=== PATIENT | female | born 1955 | race Caucasian/White ===

== ENCOUNTER 2024-05-24 17:30 | Inpatient (IN) | payer MEDICARE, SELFPAY ==
--- OUTSIDE RECORDS SUMMARY | 2024-05-24 19:16 | XMS_ITS | Encounter Summary ---
Author Organization [facility] Address [address] [place] [address] Care Team Providers Care Correctional Substance Abuse Counselor Name Role Phone Arturo Piper MD Primary Care Provider [phone] Reason for Referral * Diagnostic Imaging (Routine) - Closed Specialty Diagnoses / Procedures Referred By Alexandra melchor Referred To Contact Radiology Diagnoses Visit for screening mammogram Procedures Mammo Screening Digital Tomosynthesis Bilateral With CAD Arturo Piper MD [address] [place] [address] Phone: tel: fax: [address] [address] Phone: tel: fax: Referral ID Status Reason Start Date Expiration Date Visits Re quested Visits Authorized [id number] Closed 01/31/2017 01/31/2018 1 1 Reason for Visit * Diagnostic Imaging (Routine) - Closed Specialty Diagnoses / Procedures Referred By Alexandra melchor Referred To Contact Radiology Diagnoses Visit for screening mammogram Procedures Mammo Screening Digital Tomosynthesis Bilateral With CAD Arturo Piper MD [address] [place] [address] Phone: tel: fax: [address] [address] Phone: tel: fax: Referral ID Status Reason Start Date Expiration Date Visits Re quested Visits Authorized [id number] Closed 01/31/2017 01/31/2018 1 1 Encounter Details Date Type Department Care Team (Latest Contact Info) Description 04/03/2017 10:10 AM EDT - 04/03/2017 11:59 PM EDT Hospital Encounter [facility] [address] [place] [address] Arturo Piper MD [address] [facility] [address] [place] [address] Visit for screening mammogram Discharge Disposition: Home or Self Care Social History Tobacco Use Types Packs/Day Years Used Date Smoking Tobacco: Never Assessed Comments No Sex and Gender Information Value Date Recorded Sex Assigned at Not on file Legal Sex Female 10:49 AM EDT Gender Identity Not on file Sexual Orientation Not on file documented as of this encounter Plan of Treatment Not on file documented as of this encounter Procedures Procedure Name Priority Date/Time Associated Diagnosis Comments MAMMO SCREENING DIGITAL TOMOSYNTHESIS BILATERAL W CAD Routine 04/03/2017 10:35 AM EDT Visit for screening mammogram documented in this encounter Results * Mammo Screening Digital Tomosynthesis Bilateral With CAD (04/03/2017 10:35 AM EDT) Anatomical Region Laterality Modality Breast N/A Mammography 04/04/2017 9:44 AM EDT Impressions 04/04/2017 9:46 AM EDT No findings suspicious for malignancy. BI-RADS CATEGORY: ??1, NEGATIVE RECOMMENDATION: Yearly mammogram, yearly clinical breast exam, and encourage self breast awareness. CAD was used. The standard false negative rate of mammography is between 10% and 25%. Complex patterns or increased breast density will markedly elevate the false negative rate of mammography. A letter, in lay terminology, with the results of this exam will be mailed to the patient. This report was finalized on 04/04/2017 9:[address] Serena Harkins MD. Narrative 04/04/2017 9:46 AM EDT ROUTINE SCREENING MAMMOGRAM HISTORY: 62-year-old female for routine screening IMAGE COMPARISON: ??06/05/2011 TECHNIQUE: Bilateral full field digital mammography was performed in both 2 and 3-dimensional acquisitions. FINDINGS: There are scattered areas of fibroglandular density. There is no worrisome mass, group of calcifications, or architectural distortion to suggest malignancy. us Arturo Piper MD IM MAMMOGRAPHY ORDERABLES Alix l Result documented in this encounter Visit Diagnoses Diagnosis Visit for screening mammogram documented in this encounter Care Teams Correctional Substance Abuse Counselor Relationship Specialty Start Date End Date Arturo Piper MD [address] [place] [address] PCP - General Family Medicine 01/31/17 documented as of this encounter
--- OUTSIDE RECORDS SUMMARY | 2024-05-24 19:16 | XMS_ITS | Encounter Summary ---
Author Organization [facility] Address [address] [id number] Care Team Providers Care Cash Register Repairer Name Role Phone Arturo Piper MD Primary Care Provider Reason for Referral * Diagnostic Imaging (Routine) - Closed Specialty Diagnoses / Procedures Referred By Alexandra melchor Referred To Contact Radiology Diagnoses Visit for screening mammogram Procedures Mammo Screening Digital Tomosynthesis Bilateral With CAD Arturo Piper MD [address] [place] [address] Phone: tel: fax: Referral ID Status Reason Start Date Expiration Date Visits Re quested Visits Authorized [id number] Closed 09/02/2022 09/02/2023 1 1 Reason for Visit * Diagnostic Imaging (Routine) - Closed Specialty Diagnoses / Procedures Referred By Alexandra melchor Referred To Contact Radiology Diagnoses Visit for screening mammogram Procedures Mammo Screening Digital Tomosynthesis Bilateral With CAD Arturo Piper MD [address] [place] [address] Phone: tel: fax: Referral ID Status Reason Start Date Expiration Date Visits Re quested Visits Authorized [id number] Closed 09/02/2022 09/02/2023 1 1 Encounter Details Date Type Department Care Team (Latest Contact Info) Description 09/30/2022 2:55 PM EDT - 09/30/2022 11:59 PM EDT Hospital Encounter [address] [address] Arturo Piper MD [address] [place], [place] [id number] Visit for screening mammogram Discharge Disposition: Home [...] SCREENING DIGITAL TOMOSYNTHESIS BILATERAL W CAD Routine 09/30/2022 3:43 PM EDT Visit for screening mammogram documented in this encounter Results * Mammo Screening Digital Tomosynthesis Bilateral With CAD (09/30/2022 3:43 PM EDT) Anatomical Region Laterality Modality Breast N/A Mammography 10/01/2022 12:3 0 PM EDT Impressions 10/01/2022 12:32 PM EDT No suspicious abnormality identified. OVERALL ASSESSMENT: ACR BI-RADS CATEGORY: 1, NEGATIVE: ??Recommend continued routine annual screening mammogram. The standard false-negative rate of mammography is between 10% and 25%. Complex patterns or increased breast density will markedly elevate the false-negative rate of mammography. ?? A letter, in lay terminology, with the results of this exam will be mailed to the patient. ?? This report was finalized on 10/01/2022 12:32 PM by Azeb Corrales MD. Narrative 10/01/2022 12:32 PM EDT BILATERAL DIGITAL SCREENING MAMMOGRAM WITH TOMOSYNTHESIS CLINICAL INDICATION: ??Screening mammogram. TECHNIQUE: Bilateral low dose full field digital breast tomosynthesis imaging was performed. CAD was utilized. COMPARISON: Prior studies dating back to 04/03/2017. FINDINGS: There are scattered fibroglandular densities. RIGHT BREAST: No suspicious masses, calcifications, or areas of distortion are seen. LEFT BREAST: No suspicious masses, calcifications, or areas of distortion are seen. Arturo Piper MD IMG MAMMOGRAPHY ORDERABLES Alix l Result documented in this encounter Visit Diagnoses Diagnosis Visit for screening mammogram documented in this encounter Care Teams Cash Register Repairer Relationship Specialty Start Date End Date Arturo Piper MD [address] [place] [address] PCP - General Family Medicine 01/31/17 documented as of this encounter
--- OUTSIDE RECORDS SUMMARY | 2024-05-24 19:16 | XMS_ITS | Continuity of Care Document ---
Author Organization [facility] [place] Address [address] [place] [address] Care Team Providers Care Pantry Chef Name Role Phone KANDIS RICHMOND Primary Care Provider KANDIS RICHMOND Referring Provider Assessment No assessment recorded. Plan of Treatment Reminders Order Date Submit Date Provider Last Modified By Organization Details Last Modified Time Details Appointments None recorded. Lab surgical pathology study 2023 024 [facility], [address] [place] [address], [id number], 12:44:36 Referral None recorded. Procedures None recorded. Surgeries None recorded. Imaging None recorded. Medication Orders None recorded. Patient TargetsNo targets recorded. Patient InstructionsNo instructions recorded. Reason for Referral None Reported. Problems No Known Problems Procedures Surgical History Date Name Laterality Status Provider Name and Address Organization Details Recorded Time 03/22/20 24 Destruction BN Lesions completed NATI FINLEY MD [address] [place] [address], [phone], [facility] 03/22/2024 15:23:35 11/27/19 24 Blade Biopsy completed Haydee Grace [facility] 11/27/2023 14:56:33 12/02/19 20 Tympanogram completed HAKAN KAMARA [address] [place], [address], [facility] 12/02/2019 11:46:05 12/02/19 20 Audiogram completed HAKAN KAMARA [address] [place], [address], [facility] 12/02/2019 11:46:00 Imaging Results None recorded. Procedure Notes None recorded. Medical Equipment None Reported. Allergies No known drug allergies Medications Name Sig Start Date Stop Date Status Note LastModified by Organization Details LastModified Time atorvastati n 40 mg tablet Take 1 tablet every day by oral route. 11/26 completed Not Available Not Available Not Available ciprofloxac in 0.3 % eye drops PLACE 1 DROP INTO RIGHT EYE THREE TIMES A DAY 11/26 completed Not Available Not Available Not Available paroxetine 40 mg tablet Take 1 tablet every day by oral route. 11/26 completed Not Available Not Available Not Available Fluzone High-Dose 2019-20 (PF) 180 mcg/0.5 mL intramuscul ar syringe TO BE ADMINISTE RED BY [employer] T FOR IMMUNIZAT ION 11/26 completed Not Available Not Available Not Available Vitals None Recorded Social History Question Answer Notes LastModified by Organizat ion Details LastModified Time Tobacco Smoking Status Current Every Day Smoker Erin Ruddy gao, [facility] 12/02/2019 10:34:13 What Is Your Level Of Alcohol Consumption? Occasional [email or web address] Information not available 12/02/2019 How Much Tobacco Do You Chew? None [email or web address] Information not available 12/02/2019 Do You Or Have You Ever Used E-cigarettes Or Vape? Never Used Electronic Cigarettes [email or web address] Information not available 12/02/2019 How Much Tobacco Do You Smoke? 1.5 PPD [email or web address] Information not available 12/02/2019 Do You Use Any Illicit Or Recreational Drugs? No Information not available 11/27/2023 Do You Or Have You Ever Used Any Other Forms Of Tobacco Or Nicotine? No Information not available 11/27/2023 Sex: Unknown Functional Status None recorded. Mental Status None recorded. Family History Relationship Description Onset Age of this Age Resolved Age Notes LastModified by Organization Details LastModified Time Sister Family history of malignant neoplasm [email or web address] Not available 12/01 10:33:46 Father Heart disease [email or web address] Not available 12/01 10:33:55 Father Family history of stroke [email or web address] Not available 12/01 10:34:05 Medical History Condition Response Anxiety Disorder Y Basal Cell Carcinoma Y Gynecological HistoryNo gynecological history recorded. Obstetrics History GPAL:G 0 P 0 0 0 0 Past Encounters Encounter ID Performer Location Encounter Start Date Encounter Closed Date Diagnosis/Indication Diagnosis SNOMED-CT Code Diagnosis ICD10 Code [id number] NATI FINLEY MD [address] [address] 03/22/2024 10:55:12 03/22/2024 16:17:46 Neoplasm of uncertain behavior of skin 15076780 D48.5 Solar lentiginosis 12056 2006 L81.4 Health Concerns Section Related Observation LastModified by Organization Detai ls LastModified Time None Recorded Concern Status LastModified by Organization Details LastModified Time None Recorded Payers Encounter Date Sequence Insurance Name Policy Number Policy Tariq Covered Member ID Tariq Member ID Guarantor Name 03/22/2024 [facility] Hyun Sanchez [id number] Hyun Sanchez 03/22/2024 2 [facility] (MEDICARE SUPPLEMENT) PLAN G Hyun Sanchez [id number] Hyun Sanchez Notes Date Note Type Note Provider Name and Address Organization Details Recorded Time 4 text/html 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 {{Yes No*}}- Defibrillator? {{Yes No*}}- Artificial Heart Valves or Joints? {{Yes No*}} When? {{}}- Is patient currently on antibiotics? {{Yes No*}}- History of bleeding, infection, or complication with other surgeries? {{Yes No*}}- Has patient taken any steroids or other immunosuppressant medications in the past 2 weeks? {{Yes No*}}- Currently on blood thinners? {{Yes No*}} Which? {{}} Brown spots on face she'd like removed NATI FINLEY MD [address] [place], [address], [facility] 03/22/2024 15:25:50 OBGyn Episode No OBEpisode recorded.
--- OUTSIDE RECORDS SUMMARY | 2024-05-24 19:16 | XMS_ITS | Encounter Summary ---
Author Organization [facility] Address [address] [place] [address] Care Team Providers Care Videotape Sales Representative Name Role Phone Unavailable Primary Care Provider Unavailabl e Encounter Details Date Type Department Care Team (Late st Contact Info) Description 08/31/2013 9:37 AM EDT - 08/31/2013 11:59 PM EDT Hospital Encounter [facility] [address] [place] [address] [place] [address] [place] [address] Social History Tobacco Use Types Packs/Day Years Used Date Smoking Tobacco: Never Assessed Comments Unknown Sex and Gender Information Value Date Recorded Sex Assigned at Not on file Legal Sex Female 10:49 AM EDT Gender Identity Not on file Sexual Orientation Not on file documented as of this encounter Plan of Treatment Not on file documented as of this encounter Procedures Procedure Name Priority Date/Time Associated Diagnosis Comments XR CHEST PA AND LATERAL Routine 08/31/2013 9:40 AM EDT documented in this encounter Results * X-RAY CHEST PA AND LATERAL (08/31/2013 9:40 AM EDT) Anatomical Region Laterality Modality Body, Chest N/A Radiographic Deepa ging 08/31/2013 9:40 AM EDT Narrative 08/31/2013 11:02 AM EDT PA AND LATERAL CHEST - 08/31/2013: HISTORY: Cough. FINDINGS: 1. There is mild granulomatous and interstitial scarring in the chest which is stable from 10/21/2011. 2. Otherwise, the heart size is normal. The heart is compensated. There is no free fluid, no edema and no active disease. D: ??08/31/2013 E: ??08/31/2013 ? Anselmo CESPEDES ? Reading Aurelio LU ? Releasing Aurelio LU ? Released Date Time- 08/31/13 1157 Procedure Note Marcelo Mahoney MD - 03/15/2015 PA AND LATERAL CHEST - 08/31/2013: HISTORY: Cough. FINDINGS: 1. There is mild granulomatous and interstitial scarring in the chest which is stable from 10/21/2011. 2. Otherwise, the heart size is normal. The heart is compensated. There is no free fluid, no edema and no active disease. E: 08/31/2013 Anselmo CESPEDES Reading Aurelio LU Releasing Aurelio LU Released Date Time- 08/31/13 1157 Arturo Piper MD [facility] ORDERABL ES Final Result documented in this encounter Visit Diagnoses Not on filedocumented in this encounter
--- OUTSIDE RECORDS SUMMARY | 2024-05-24 19:16 | XMS_ITS | Encounter Summary ---
Author Organization [facility] Address [address] [place] [address] Care Team Providers Care Flexible Nanny Name Role Phone Arturo Piper MD Primary Care Provider [phone] Reason for Referral * Diagnostic Imaging (Routine) - Closed Specialty Diagnoses / Procedures Referred By Alexandra melchor Referred To Contact Radiology Diagnoses Visit for screening mammogram Procedures Mammo Screening Digital Tomosynthesis Bilateral With CAD Arturo Piper MD [address] [place] [address] Phone: tel: fax: [address] [address] Phone: tel: fax: Referral ID Status Reason Start Date Expiration Date Visits Re quested Visits Authorized [id number] Closed 08/06/2018 08/06/2019 1 1 Reason for Visit * Diagnostic Imaging (Routine) - Closed Specialty Diagnoses / Procedures Referred By Alexandra melchor Referred To Contact Radiology Diagnoses Visit for screening mammogram Procedures Mammo Screening Digital Tomosynthesis Bilateral With CAD Arturo Piper MD [address] [place] [address] Phone: tel: fax: [address] [address] Phone: tel: fax: Referral ID Status Reason Start Date Expiration Date Visits Re quested Visits Authorized [id number] Closed 08/06/2018 08/06/2019 1 1 Encounter Details Date Type Department Care Team (Latest Contact Info) Description 08/18/2018 11:15 AM EST - 08/18/2018 11:59 PM EST Hospital Encounter [facility] [address] [place] [address] Arturo Piper MD [address] [facility] [address] [place] [address] Visit for screening mammogram Discharge Disposition: Home [...] SCREENING DIGITAL TOMOSYNTHESIS BILATERAL W CAD Routine 08/18/2018 11:43 AM EST Visit for screening mammogram documented in this encounter Results * Mammo Screening Digital Tomosynthesis Bilateral With CAD (08/18/2018 11:43 AM EST) Anatomical Region Laterality Modality Breast N/A Mammography 08/18/2018 1:37 PM EST Impressions 08/18/2018 1:42 PM EST No findings suspicious for malignancy. BI-RADS CATEGORY: [...] the patient. This report was finalized on 08/18/2018 1:[address] Serena Harkins MD. Narrative 08/18/2018 1:42 PM EST ROUTINE SCREENING MAMMOGRAM HISTORY: 63-year-old female for routine screening IMAGE COMPARISON: ??Prior exams, most recently dated 04/03/2017 TECHNIQUE: Low dose full field digital breast tomosynthesis imaging was performed with 2D and 3D acquisitions consisting of bilateral CC and MLO views. Bilateral extended CC views were also performed as well as nipple in profile CC views. FINDINGS: There are scattered areas of fibroglandular density. There is no worrisome mass, group of calcifications, or architectural distortion to suggest malignancy. Arturo Piper MD IM MAMMOGRAPHY ORDERABLES Alix gamez Result documented in this encounter Visit Diagnoses Diagnosis Visit for screening mammogram documented in this encounter Care Teams Flexible Nanny Relationship Specialty [place] [address] [place] [address] PCP - General Family Medicine 01/31/17 documented as of this encounter
--- OUTSIDE RECORDS SUMMARY | 2024-05-24 19:16 | XMS_ITS | Encounter Summary ---
Author Organization [facility] Address [address] [place] [address] Care Team Providers Care Turbo Electric Operator Name Role Phone Unavailable Primary Care Provider Unavailabl e Encounter Details Date Type Department Care Team (Late st Contact Info) Description 12/04/2006 Historical Mammograp hy Encounter [facility] [address] [place] [address] Interface, See Report Social History Tobacco Use Types Packs/Day Years [...] Name Priority Date/Time Associated Diagnosis Comments MAMMO HISTORICAL RESULT Routine 12/04/2006 2:45 PM EDT documented in this encounter Results * MAMMO HISTORICAL RESULT (12/04/2006 2:45 PM EDT) Anatomical Region Laterality Modality Breast Mammography 12/04/2006 2:45 PM EDT Narrative 12/05/2006 1:20 PM EDT ?[facility] ? [address] ??[place], [place] [address] ? NAME: HYUN MAURER ? : ??[birth year] ??MR#: [id number] ? LOC: ?? DIS ? AGE: 51Y ?? Pt type: CO ?Exam Date: 12/04/067 ? SEX: F ?? AN#:[id number] ?Ck-in#: [id number] ? KANDIS RICHMOND ? [address] ? [address] ? [place] ?[place] ?[address] ? Chk-in # ?? Order ?Exam ?[id number] ?? 0001 ? [id number] ??AB MAMMO SCREEN BILAT DIGITAL PNL ? Ord Diag: RTN MMG ? HISTORY: ??51 year old female for annual screening mammography with no reported breast complaints. No personal or family history of breast cancer is given. ?? BILATERAL DIGITAL MAMMOGRAM: ?? COMPARISON USED: ?? 04/19/04, digitized. ?? TECHNIQUE: ??CC and MLO digital views of both breasts were performed. ?? FINDINGS: ??The breast parenchymal pattern is mild to fatty replaced. There are no worrisome masses, areas of architectural distortion, new asymmetries or pleomorphic calcifications. ?? Benign right axillary lymph node is identified. Small intramammary lymph node is noted superiorly on the right. Patches of denser tissue are noted centrally an towards the upper outer quadrants bilaterally in a mildly nodular pattern which is stable. ?? IMPRESSION: ??No mammographic evidence of malignancy or significant change from March,. ?? Bi-Rads II, benign. ?? RECOMMENDATION: ??Yearly mammography, yearly physical exam, monthly self breast exam. ?? The standard false negative rate of mammography is between 10 and 25%. Complex patterns or increased breast density will markedly elevate the ? FINAL ?CONTINUED ?Page ??1 ? RADIOLOGY REPORT ?[facility] ? [address] ??[place], [place] [address] ? NAME: HYUN MAURER ? : ??[birth year] ??MR#: [id number] ? LOC: ?? DIS ? AGE: 51Y ?? Pt type: CO ?Exam Date: 12/04/061446 ? SEX: F ?? AN#:[id number] ?Ck-in#: [id number] ? REESOR,KANDIS E ? [address] ? [address] ? [place] ?[place] [address] ? Checkin-Exam Code Summary ? [phone] false negative rate of mammography. ?? ICAD was utilized. ?? A copy of this report in lay terminology has been sent to the patient. ?/READ BY/ HETAL NGUYEN ?/Released By/ HETAL NGUYEN ?Released By Date/Time: ??06/15/07 1312 ?Rn Licensed Practical: ??JBW ? FINAL ? Page ??2 ? RADIOLOGY REPORT us See Report Interface IMG MAMMOGRAPHY ORDERABLES Final Result documented in this encounter Visit Diagnoses Not on filedocumented in this encounter
--- OUTSIDE RECORDS SUMMARY | 2024-05-24 19:16 | XMS_ITS | Data Portability ---
Author Organization [facility] NANDO Feliz [place] CLOSED Address [address] [facility] [address] [place] [address] Care Team Providers Care Recreation Programmer Name Role Phone KARLSORKANDIS Primary Care Provider REESORKANDIS Referring Provider [phone] Assessment No assessment recorded. Plan of Treatment Reminders Order Date Submit Date Provider Last Modified By Organization Details Last Modified Time Details Appointments None recorded. Lab surgical pathology study 2023 [facility], [address] [place] [address], [phone], 4 13:38:16 surgical pathology study 2023 024 [facility], [address] [place] [address], [phone], 4 12:44:36 Referral None recorded. Procedures None recorded. Surgeries None recorded. Imaging None recorded. Medication Orders None recorded. Patient TargetsNo targets recorded. Patient InstructionsNo instructions recorded. Reason for Referral None Reported. Results Created Date Observation Date Name Description Value Unit Range Abnormal Flag Note LastModifiedBy Organization Detail LastModifiedTime 03/22/20 24 03/22/2024 SURGI SOFIYA surgical SEE BELOW Tensed topat holog y Repor t NAME: HYUN MAURER PATH: DD-24 -1223 3 PROCE DURE DATE: 03/22 SIGNO UT DATE: 03/29 Copy to: Diagn osis: SPIRA DENOM A, RE-EX CISIO N Comme nt: The betsy ns are free of tumor . Subcu taneo us fat is ident ified . SOURC E OF SPECI MEN: SKIN, L POSTE RIOR TEMPL E CLINI SOFIYA INFOR MATIO N: BX PROVE N: SPIRA DENOM A Gross Descr iptio n: Recei bridger for consu ltati on one nguyen speci men that measu red 20 x 10 x 4 mm and seria lly secti oned (x6) submi tted in three casse ttes. Micro scopi c Descr iptio n: There is a full- thick ness excis ion of skin. In the cente r of the secti ons is a focus of granu latio n tissu e estefani ng the site of a previ ous proce dure. Withi n the super ficia l dermi s is a proli ferat ion of epith elial cells with focal duct forma tion. PITA COTO MD Karen d Out Date: 03/29 12:44 1 Not Available [facility] [address] [place] [address], [phone], 03/29/2024 12:44:36 Result Notes None recorded. Problems No Known Problems Procedures Surgical History Date Name Laterality Status Provider Name and Address Organization Details Recorded Time 03/22/20 24 Destruction BN Lesions completed NAIT FINLEY MD [address] [place], [address], [facility] 03/22/2024 15:23:35 11/27/19 24 Blade Biopsy completed Haydee Grace [facility] 11/27/2023 14:56:33 12/02/19 20 Tympanogram completed PAOLA GREEN, AUD [address] [place], [address], [facility] 12/02/2019 11:46:05 12/02/19 20 Audiogram completed PAOLA GREEN AUD [address] [place], [address], [facility] 12/02/2019 11:46:00 Imaging Results None recorded. Procedure [...] ar syringe TO BE ADMINISTE RED BY PHARMACIS T FOR IMMUNIZAT ION 11/26 completed Not Available Not Available Not Available Vitals None Recorded Social History Question Answer Notes LastModified by Organizat ion Details LastModified Time Tobacco Smoking Status Current Every Day Smoker Erin Fox [facility] 12/02/2019 10:34:13 What Is Your Level Of Alcohol Consumption? Occasional [email or web address] Information not available 12/02/2019 How Much Tobacco Do You Chew? None [email or web address] Information not available 12/02/2019 Do You Or Have You Ever Used E-cigarettes Or Vape? Never Used Electronic Cigarettes [email or web address] Information not available 12/02/2019 How Much Tobacco Do You Smoke? 1.5 PPD [email or web address] Information not available 12/02/2019 Do You Use [...] Time Sister Family history of malignant neoplasm [email or web address] Not available 12/01 10:33:46 Father Heart disease [email or web address] Not available 12/01 10:33:55 Father Family history of stroke [email or web address] Not available 12/01 10:34:05 Medical History Condition Response Anxiety Disorder Y Basal Cell Carcinoma Y Gynecological HistoryNo gynecological history recorded. Obstetrics History GPAL:G 0 P 0 0 0 0 Past Encounters Encounter ID Performer Location Encounter Start Date Encounter Closed Date Diagnosis/Indication Diagnosis SNOMED-CT Code Diagnosis ICD10 Code [id number] LUDY HAAS MD [place] [facility] [address] [place] [address] 12/02/2019 10:08:41 12/02/2019 12:22:46 Sensorineural hearing loss of bilateral ears 873935229 H90.3 Noise-garth ghanshyam hearing loss 68486514 H83.3X9 [id number] PAOLA LYNNE, AUD [place] [facility] [address] [place] [address] 7 12/02/2019 11:18:16 12/02/2019 11:46:39 Sensorineural hearing loss of bilateral ears 780128085 H90.3 Abnormal a uditory perception 36583932 H93.296 [id number] PAOLA LYNNE, AUD [place] [facility] [address] [place] [address] 12/08/2019 10:36:54 12/08/2019 11:21:55 [id number] PAOLA LYNNE, AUD [place] [facility] [address] [place] [address] 12/21/2019 11:12:24 12/21/2019 15:46:42 [id number] PAOLA LYNNE, AUD [place] [facility] [address] [place] [address] 12/30/2019 11:27:06 12/30/2019 11:44:28 [id number] PAOLA LYNNE, AUD [place] [facility] [address] [place] [address] 01/18/2020 13:31:23 01/18/2020 14:29:05 [id number] PAOLA LYNNE, AUD [place] [facility] [address] [place] [address] 01/27/2020 13:23:34 01/27/2020 13:42:13 [id number] PAOLA LYNNE, [facility] [place] [facility] [address] [place] [address] 05/09/2020 14:41:20 05/09/2020 14:54:14 [id number] NATI FINLEY MD [place] [address] [place] [address] 11/27/2023 13:51:04 11/27/2023 15:47:39 Melanocytic nevus of skin 356347026 D22.5 Solar lentiginosis 76759 2006 L81.4 Seborrheic keratosis 394 957633 L82.1 Hemangioma of skin 73257 006 D18.01 Neoplasm o f uncertain behavior of skin 45801089 D48.5 [id number] NATI FINLEY MD [facility] [address] [place] [address] 03/22/2024 10:55:12 03/22/2024 16:17:46 Neoplasm of uncertain behavior of skin 41320720 D48.5 Solar lentiginosis 08467 2006 L81.4 Health Concerns Section Related Observation LastModified by Organization Detai ls LastModified Time None Recorded Concern Status LastModified by Organization Details LastModified Time None Recorded Advance Directives Directive None Recorded Payers Encounter Date Sequence Insurance Name Policy Number Policy Tariq Covered Member ID Tariq Member ID Guarantor Name 01/18/2020 1 [place] Hyun R Maurer [id number] Hyun Maurer 01/18/2020 2 [employer] OPTIONS (MEDICARE SUPPLEMENT) PLAN G Hynu Maurer [id number] Hyun Maurer 01/27/2020 1 [place] Hyun R Maurer [id number] Hyun Maurer 01/27/2020 2 [employer] OPTIONS (MEDICARE SUPPLEMENT) PLAN G Hyun Maurer [id number] Hyun Maurer 05/09/2020 1 [place] Hyun R Maurer [id number] Hyun Maurer 05/09/2020 2 [employer] OPTIONS (MEDICARE SUPPLEMENT) PLAN G Hyun Maurer [id number] Hyun Maurer 11/27/2023 1 [place] Hyun Maurer [id number] Hyun Maurer 11/27/2023 2 [employer] OPTIONS (MEDICARE SUPPLEMENT) PLAN G Hynu Maurer [id number] Hyun Maurer 03/22/2024 1 [place] Hyun Maurer [id number] Hyun Maurer 03/22/2024 2 [employer] OPTIONS (MEDICARE SUPPLEMENT) PLAN G Hyun Maurer [id number] Hyun Maurer Notes Date Note Type Note Provider Name and Address Organization Details Recorded Time 4 text/html I have different spots on my skin that I'd like to be checked Extent of skin exam requested:{{focal wais t up* full}} NATI FINLEY MD [address] [place] [address], [address], [facility] 12/05/2023 11:09:20 4 text/html Patient is here for an 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 {{Yes No*}}- Defibrillator? {{Yes [...] face she'd like removed NATI FINLEY MD [address] [place] [address], [address], [facility] 03/22/2024 15:25:50 OBGyn Episode No OBEpisode recorded.
--- OUTSIDE RECORDS SUMMARY | 2024-05-24 19:16 | XMS_ITS | Encounter Summary ---
Author Organization [facility] Address [address] [id number] Care Team Providers Care Ac/Dc Rewinder Name Role Phone Arturo Piper MD Primary Care Provider [phone] Reason for Referral * Diagnostic Imaging (Routine) - Closed Specialty Diagnoses / Procedures Referred By Alexandra melchor Referred To Contact Radiology Diagnoses Tobacco dependency Procedures CT Chest With Contrast Arturo Piper MD [address] [place] [address] Phone: tel: fax: [place] [phone] Phone: tel: Referral ID Status Reason Start Date Expiration Date Visits Re quested Visits Authorized [id number] Closed 03/05/2022 03/05/2023 1 1 Reason for Visit * Diagnostic Imaging (Routine) - Closed Specialty Diagnoses / Procedures Referred By Alexandra melchor Referred To Contact Radiology Diagnoses Tobacco dependency Procedures CT Chest With Contrast Arturo Piper MD [address] [place] [address] Phone: tel: fax: [address] [address] Phone: tel: Referral ID Status Reason Start Date Expiration Date Visits Re quested Visits Authorized [id number] Closed 03/05/2022 03/05/2023 1 1 Encounter Details Date Type Department Care Team (Latest Contact Info) Description 03/13/2022 3:04 PM EDT - 03/13/2022 11:59 PM EDT Hospital Encounter [facility] CT AT [facility] [address] [facility] [place] [address] Arturo Piper MD [address] [facility] [address] [place] [address] Tobacco dependency Discharge Disposition: Home or Self Care Social [...] Procedure Name Priority Date/Time Associated Diagnosis Comments CT CHEST W CONTRAST Routine 03/13/2022 3 :54 PM EDT Tobacco dependency POCT CREATININE Routine 03/13/2022 3:42 PM EDT documented in this encounter Results * CT Chest With Contrast Diagnostic (03/13/2022 3:54 PM EDT) Anatomical Region Laterality Modality Chest N/A Computed Tomogra phy 03/15/2022 12:5 9 PM EDT Impressions 03/15/2022 11:09 PM EDT 1. Multiple granulomatous calcifications of the lungs and mediastinum. 2. Several small bland almost punctate noncalcified pulmonary nodules likely also granulomas. 3. Somewhat larger 6 mm round smooth-margined noncalcified left lower lobe nodule. This may represent a noncalcified granuloma, but by lung RADS criteria is suggested for 6-month low-dose follow-up scan. 4. Mildly hyperplastic appearance of the left adrenal gland, which may be incidental. 5. No evidence of active disease elsewhere. This report was finalized on 03/15/2022 11:[address] Noel Patrick MD. Narrative 03/15/2022 11:09 PM EDT DATE OF EXAM: 03/13/2022 3:22 PM PROCEDURE: CT CHEST W CONTRAST DIAGNOSTIC- INDICATIONS: Tobacco abuse, addiction; F17.200-Nicotine dependence, unspecified, uncomplicated. COMPARISON: No previous CT scan. 08/31/2013 chest 2 views. TECHNIQUE: Routine transaxial slices were obtained through the chest after the intravenous administration of 90 mL of Isovue 300. Reconstructed coronal and sagittal images were also obtained. Automated exposure control and iterative construction methods were used. The radiation dose reduction device was turned on for each scan per the ALARA (As Low as Reasonably Achievable) protocol. FINDINGS: Images of the mediastinum show multiple densely calcified nodes but no significant noncalcified adenopathy or other mass. No pericardial or pleural effusion is seen. There is moderate coronary artery calcification. Thoracic aorta and pulmonary arteries appear grossly normal. Images of the lungs show a smooth, bland 5 mm nodule right middle lobe and a few couple of other punctate right upper lobe nodules or areas of nodular scarring. There are multiple granulomatous calcifications in the left lower lobe, and also a smooth round 6 mm noncalcified nodule, axial image 71 series 4. A small pleural-based nodule or nodular scar is seen in the lingula image 78. Given the presence of other obviously calcified granulomas in the left hilum and left lower lobe this may represent a granuloma as well. Lung RADS criteria for this nodule is category 3 probably benign, with 6-month low-dose CT scan follow-up suggested. Included images of the upper abdomen show diffuse fatty liver change. Spleen is not enlarged. Pancreatic tail, right adrenal gland and upper renal poles appear unremarkable. There is mild left adrenal gland hyperplasia. Bony structures appear to be intact. Procedure Note Noel Patrick MD - 03/15/2022 DATE OF EXAM: 03/13/2022 3:22 PM PROCEDURE: CT CHEST W CONTRAST DIAGNOSTIC- INDICATIONS: Tobacco abuse, addiction; F17.200-Nicotine dependence, unspecified, uncomplicated. COMPARISON: No previous CT scan. 08/31/2013 chest 2 views. TECHNIQUE: Routine transaxial slices were obtained through the chest after the intravenous administration of 90 mL of Isovue 300. Reconstructed coronal and sagittal images were also obtained. Automated exposure control and iterative construction methods were used. The radiation dose reduction device was turned on for each scan per the ALARA (As Low as Reasonably Achievable) protocol. FINDINGS: Images of the mediastinum show multiple densely calcified nodes but no significant noncalcified adenopathy or other mass. No pericardial or pleural effusion is seen. There is moderate coronary artery calcification. Thoracic aorta and pulmonary arteries appear grossly normal. Images of the lungs show a smooth, bland 5 mm nodule right middle lobe and a few couple of other punctate right upper lobe nodules or areas of nodular scarring. There are multiple granulomatous calcifications in the left lower lobe, and also a smooth round 6 mm noncalcified nodule, axial image 71 series 4. A small pleural-based nodule or nodular scar is seen in the lingula image 78. Given the presence of other obviously calcified granulomas in the left hilum and left lower lobe this may represent a granuloma as well. Lung RADS criteria for this nodule is category 3 probably benign, with 6-month low-dose CT scan follow-up suggested. Included images of the upper abdomen show diffuse fatty liver change. Spleen is not enlarged. Pancreatic tail, right adrenal gland and upper renal poles appear unremarkable. There is mild left adrenal gland hyperplasia. Bony structures appear to be intact. IMPRESSION: 1. Multiple granulomatous calcifications of the lungs and mediastinum. 2. Several small bland almost punctate noncalcified pulmonary nodules likely also granulomas. 3. Somewhat larger 6 mm round smooth-margined noncalcified left lower lobe nodule. This may represent a noncalcified granuloma, but by lung RADS criteria is suggested for 6-month low-dose follow-up scan. 4. Mildly hyperplastic appearance of the left adrenal gland, which may be incidental. 5. No evidence of active disease elsewhere. This report was finalized on 03/15/2022 11:[address] Noel Patrick MD. Arturo Piper MD IMG CT ORDERABLES Final Result * POC Creatinine (03/13/2022 3:42 PM EDT) Creatinine 0.90 0.60 - 1.30 mg/dL 03/13/2022 4:03 PM EDT [facility] Comment:Serial Number: [id number] 7Operator: [id number] Blood 03/13/2022 3:42 PM EDT 03/13/2022 4:03 PM EDT Arturo iPper MD POINT OF CARE TEST ORDERABLES F inal Result [facility]
[address] [place] [address], documented in this encounter Visit Diagnoses Diagnosis Tobacco dependency Tobacco use disorder documented in this encounter Administered Medications Inactive Administered Medications - up to 3 most recent administrations Medication Order MAR Action Action Date Dose Rate Site iopamidol (ISOVUE-300) 61 % injection 100 mL 100 mL, Intravenous, Once in Imaging, On Fri03/13/22 at 1557, For 1 dose Given 03/13/2022 3:55 PM EDT 90 mL L eft Arm documented in this encounter Care Teams Ac/Dc Rewinder Relationship Specialty Start Date End Date Arturo Piper MD [address] [place] [address] PCP - General Family Medicine 01/31/17 documented as of this encounter
--- OUTSIDE RECORDS SUMMARY | 2024-05-24 19:16 | XMS_ITS | Encounter Summary ---
Author Organization [facility] Address [address] [place] [address] Care Team Providers Care Human Resources File Clerk Name Role Phone Unavailable Primary Care Provider Unavailabl e Encounter Details Date Type Department Care Team (Late st Contact Info) Description 06/05/2011 Historical Mammograp hy Encounter [facility] [address] [place] [address] Interface, See Report Social History [...] Associated Diagnosis Comments MAMMO HISTORICAL RESULT Routine 06/05/2011 2:23 PM EST documented in this encounter Results * MAMMO HISTORICAL RESULT (06/05/2011 2:23 PM EST) Anatomical Region Laterality Modality Breast Mammography 06/05/2011 2:23 PM EST Narrative 06/06/2011 2:22 PM EST ?[facility] ? [address] ??[place], [place] [address] ? NAME: HYUN MAURER ? : ??53 ??MR#: [id number] ? LOC: ?? DIS ? AGE: 56Y ?? Pt type: CO ?Exam Date: 06/05/11 1425 ? SEX: F ?? AN#:[id number] ?Ck-in#: [id number] ? [facility] ? [address] ? [address] ? [place] ?[place] ?[address] ? Chk-in # ?? Order ?Exam ?[id number] ?? 0001 ? [id number] ??AB MAMM SCREEN BILAT DIG PNL ? Ord Diag: RTN MMG ? BILATERAL SCREENING DIGITAL MAMMOGRAM: ? HISTORY: 56 year old female for routine screening with positive family history of breast cancer in her sister, ovarian cancer in her grandmother. ?? FILM COMPARISON: ??Prior exams most recently dated 12/04/2006. ? FINDINGS: ??The breast parenchymal pattern is a mixture of fat and scattered fibroglandular tissue. ??There is no mass, cluster of microcalcifications, or architectural distortion to suggest development of malignancy. ?? IMPRESSION: No findings suspicious for malignancy. ?? BI-RADS I, Negative. ?? RECOMMENDATION: Yearly mammogram, yearly physical exam, and monthly self breast exam. ? iCAD was utilized. ?? The standard false-negative rate of mammography is between 10 and 25%. Complex patterns or increased breast density will markedly elevate the false-negative rate of mammography. ? A letter, in lay terminology, with the results of this exam will be ? FINAL ?CONTINUED ?Page ??1 ? RADIOLOGY REPORT ?[facility] ? [address] ??[place], [place] [address] ? NAME: HYUN MAURER ? : ??[birth year] ??MR#: [id number] ? LOC: ?? DIS ? AGE: 56Y ?? Pt type: CO ?Exam Date: 06/05/11 1425 ? SEX: F ?? AN#:[id number] ?Ck-in#: [id number] ? [facility] ? [address] ? [address] ? [place] ?[place] ?[address] ? Checkin-Exam Code Summary ? [phone] mailed to the patient. ?/READ BY/ PETER ABRAMS-MD ?/Released By/ PETER ABRAMS-MD ?Released By Date/Time: ??12/15/11 1332 ?Currency Exchange Specialist: ??DME ? FINAL ? Page ??2 ? RADIOLOGY REPORT us See Report Interface IMG MAMMOGRAPHY ORDERABLES Final Result documented in this encounter Visit Diagnoses Not on filedocumented in this encounter
--- OUTSIDE RECORDS SUMMARY | 2024-05-24 19:16 | XMS_ITS | Clinical Summary ---
Author Organization [facility] Address [address] [place] [address] Care Team Providers Care Crown Assembly Machine Operator Name Role Phone Arturo Piper MD Primary Care Provider [phone] Family History Medical History Relation Name Comments Breast cancer Maternal Aunt DX AGE UNKNOW N Breast cancer Paternal Grandmother Breast cancer Sister Ovarian cancer Neg Hx Relation Name Status Comments Maternal Aunt Paternal Grandmother Sister Social History Tobacco Use Types Packs/Day Years Used Date Smoking Tobacco: Never Assessed Abuse Screen Answer Date Recorded Unsafe at Home or Work/School Not on file Feels Threatened by Someone? Not on file 02/2023 Does Anyone Keep You from Co ntacting Others or Doint Things Outside the Home? Not on file 03/31/2023 Physical Sign of Abuse Present Not on file 1 Housing Stability Answer Date Recorded Current Living Arrangements Not on file 02/2023 Potentially Unsafe Housing Conditions Not on mily e 03/31/2023 Family and Community Support Answer Simón e Recorded Help with Day-to-Day Activities Not on file 03/31/2023 Lonely or Isolated Not on file 03/31/2023 Employment Answer Date Recorded Do you want help finding or keeping work or a dale b? Not on file 03/31/2023 Disabilities Answer Date Recorded Concentrating, Remembering, or Making Decisions Difficulty Not on file 03/31/2023 Doing Errands Independently Difficulty Not on fi le 03/31/2023 Education Answer Date Recorded Help with school or training? Not on file Preferred Language Not on file 03/31/2023 Comments No Sex and Gender Information Value Date Recorded Sex Assigned at Not on file Legal Sex Female 10:49 AM EDT Gender Identity Not on file Sexual Orientation Not on file Plan of Treatment Health Maintenance Due Date Last Done Comments ANNUAL WELLNESS VISIT 1954 COLOGUARD 1954 COLON CANCER SCREENING 5 YEA R SIGMOIDOSCOPY 1954 COLONOSCOPY 1954 [address] CANCER SCREENING 1954 CT COLONOGRAPHY 1954 DXA SCAN 1954 FECAL OCCULT BLOOD TEST 1954 FIT Testing (1 year) 1954 HEPATITIS C SCREENING 1954 TDAP/TD VACCINES (1 - Tdap) 1973 ZOSTER VACCINE (1 of 2) 01/15/2004 Pneumococcal Vaccine 65+ (1 of 1 - PCV) 2019 INFLUENZA VACCINE 12/22/2023 05/25/2021, , 04/03/2017 COVID-19 Vaccine (1 - season) 2024 MAMMOGRAM 09/30/2024 09/30/2022, 07/25, 04/03/2017 Procedures Procedure Name Priority Date/Time Associated Diagnosis Comments MAMMO SCREENING DIGITAL TOMOSYNTHESIS BILATERAL W CAD Routine 09/30/2022 3:43 PM EDT Visit for screening mammogram from Last 3 Months or Most Recently Relevant to Health Maintenance Results * Mammo Screening Digital Tomosynthesis Bilateral [...] of distortion are seen. Arturo Piper MD [facility] MAMMOGRAPHY ORDERABLES Alix l Result from Last 3 Months or Most Recently Relevant to Health Maintenance Insurance MEDICARE A & B Member Subscriber Plan / Payer ( fective 2018-Present) Name:Hyun Sanchez Member ID:[id number] Relation to Subscriber:Self Name:Hyun Sanchez Subscriber ID:[id number] Payer ID:[id number] Group ID:Not on file Type:Not on file Address: [address] [employer] Care Teams Crown Assembly Machine Operator Relationship Specialty Start Date End Date Arturo Piper MD [address] [place] [address] PCP - General Family Medicine 01/31/17
[2024-05-24 19:20] VITALS: PULSE 80
[2024-05-24 19:25] VITALS: BMI 25.8
[2024-05-24 19:30] VITALS: BP 125/80; PULSE 76; RESP 18; TEMP 36.6; O2SAT 95; BMI 25.7
--- NOTE | 2024-05-24 19:30 | ECG_ITS ---
APPROVED REPORT Exam: Resting ECG HR:61 bpm ECG Measurements Heart Rate 61 AXES QRSd 79 QRS 25 QT 411 T 36 QTc 415 Conclusion AV dissociation c/w 3rd degreee AV block MODERATE ST DEPRESSION [0.05+ mV ST DEPRESSION] ABNORMAL ECG UNCONFIRMED REPORT Electronically signed by : Javi Gates MD 05/25/2024 08:44:59
--- NOTE | 2024-05-24 19:38 | PC.NURSE ---
Patient arrived to floor via stretcher with EMS from [facility] at 19:12.
[2024-05-24 19:39] LABS: Basophils # 0.1 K/mm3 (0-0.2); Basophils % 0.4 % (0.1-2.0); Eosinophils # 0.1 K/mm3 (0.0-0.4); Eosinophils % 0.6 % (0.1-12.0); Hematocrit 42.1 % (37.0-47.0); Hemoglobin 13.6 g/dL (12.2-16.2); Lymphocytes # 1.8 K/mm3 (0.7-4.5); Lymphocytes % 13.9 % (10-50); Mean Corpuscular HGB Conc 32.2 g/dL (31.8-35.4); Mean Corpuscular Hemoglobin 30.2 pg (27.0-31.2); Mean Corpuscular Volume 93.7 fl (81-99); Mean Platelet Volume 8.2 fl (7.4-10.4); Monocytes # 0.7 K/mm3 (0.1-1.0); Monocytes % 5.5 % (1.7-9.3); Neutrophils # 10.1 K/mm3 (1.8-7.8); Neutrophils % 79.7 % (37.0-80.0); Platelet Count 320 K/mm3 (142-424); Red Blood Count 4.49 M/mm3 (4.20-5.40); White Blood Count 12.6 K/mm3 (4.8-10.8)
[2024-05-24 19:49] LABS: INR 0.99 (0.9-1.1); Prothrombin Time 11.1 seconds (10.1-12.5)
[2024-05-24 20:00] VITALS: PULSE 89
[2024-05-24 20:05] LABS: Chloride 105 mmol/L (98-107)
[2024-05-24 20:06] LABS: Potassium 4.5 mmoL/L (3.5-5.1); Sodium 135 mmol/L (136-145)
[2024-05-24 20:09] LABS: Anion Gap 8.5 mEq/L (5-15); Blood Urea Nitrogen 20 mg/dl (7-17); Calcium 8.9 mg/dl (8.4-10.2); Carbon Dioxide 26 mmol/L (22.0-30.0); Creatinine Clearance Estimated 55 mL/min (50-200); Estimated Glomerular Filt Rate 62 ml/min (>60); GFR (African American) 75 ML/MIN (>60); Glucose 115 mg/dl (74-100); Magnesium 2.1 mg/dl (1.6-2.3)
[2024-05-24] MEDS: HEPARIN DRIP CONSULT 1 EACH NOTAPPLIC (20:27)
--- NOTE | 2024-05-24 20:30 | XR_ITS ---
PROCEDURE INFORMATION: Exam: XR Chest Exam date and time: 05/24/2024 8:33 PM Age: 69 years old Clinical indication: Cough; Additional info: Cough, chest pain 50-year smoker TECHNIQUE: Imaging protocol: Radiologic exam of the chest. Views: 1 view. COMPARISON: No relevant prior studies available. FINDINGS: Tubes, catheters and devices: None. Lungs: Mild bilateral perihilar and basilar interstitial lung opacities, suggesting pulmonary edema versus infiltrates. The peripheral lungs are otherwise clear. No consolidation. Evidence for calcified lung granuloma in the left chest. Pleural spaces: No pleural effusion. No pneumothorax. Heart/Mediastinum: Cardiac silhouette appears mildly enlarged. Bones/joints: Mild to moderate generalized bony degenerative changes. IMPRESSION: 1. Mild interstitial pulmonary edema versus infiltrates. 2. Mild enlarged cardiac silhouette.
--- NOTE | 2024-05-24 20:36 | P.HP_ITS ---
History of Present Illness *Admission Date: 05/24/24 *Reason for visit:: transfer from [place] for [place] *History of present illness: This 69-year-old female has been transferred from [facility]. Per the patient she said she did have a CAT scan of her head related to a fall. Patient is a 50+ year smoker. She was sitting on side of her bed as she remembers was coughing very hard trying to spit some junk up into a garbage can. She is not sure what happened but she woke up on the floor with bruising to the right side of her face near the eye. She does not remember the event she said she also found a little blood on her pillow from the fall but she does not remember laying her head on the pillow after the fall. She said she did have a CAT scan done at [place]. Dr. Hoyos was contacted by [facility] and we have excepted admission of the patient to the floor. The patient is stable at this time alert oriented showing no sign of weakness on either side, no signs of confusion no signs of slurring of speech. I been informed she has received aspirin and Lovenox before transfer.. She is in a changing third-degree block that could be a significant first-degree AV block at times. Heart rate remaining in the 60s. Other vital signs in normal limits. She states she has a small amount of chest pressure and a little bit of headache from her fall. She denies any respiratory symptoms. And she denies being ill before this event. Patient has been examined after caudal has been updated on the patient. Orders have been placed planning to do a cardiac cath in the morning is the agenda. If the patient was to change become unstable would notify cardiology tonight if a more immediate cardiac cath was needed.. Will place on a heparin drip half inch of Nitropaste appropriate labs have been ordered to be rechecked in the morning including an EKG , nicotine patch has been applied. Patient is a smoker but said she was coughing so we will do the respiratory panel to make sure there is no viral infection on top of this and do a chest x-ray. Breathing treatments will be held as as needed as the patient is in no distress at this time saturations 95% on room air. Past medical history, the patient states she normally does not see a doctor very often., She noted she gets most of her normal immunizations, has had normal for women's health exams in the past and also including colonoscopy. She has not spent the night in the hospital since she has not been a much younger person. And despite being more than a 50 pack-year smoker. Patient looks younger than her 69 years she appears to be in good health with good nutrition and normal body weight. Noting we have no record of her in our medical system., So all history is directly from the patient. [facility] Disclaimer: The information contained in this section may have been updated after the patient was seen, as this information can be updated by other users. Medical History (Updated 05/24/24 @ 21:39 by Erin Parish RN) Skin cancer Hyperlipidemia Surgical History (Updated 05/25/24 @ 00:01 by Erin Parish RN) History of hand surgery Family History (Updated 05/24/24 @ 21:38 by Erin Parish RN) Other Family history of Alzheimer's disease Family history of cancer Family history of diabetes mellitus type II Family history of hypertension Family history of myocardial infarction Family history of stroke Social History (Updated 05/24/24 @ 21:40 by Erin Parish RN) Smoking Status: Current every day smoker Tobacco counseling given: provider counseling alcohol intake: current current occupational status: retired Travel in the last 8 weeks: None Review of Systems Review of Systems Review of systems:: pertinent systems reviewed and negative unless documented below Constitutional Constitutional: Reports as per HPI Eyes Eyes: Reports as per HPI Comments: Patient denies any vision changes related to the injury to the right side of her face ENT Ears, Nose, Mouth, and Throat: Reports as per HPI Comments: Facial contusion to the right side of the face at the orbit. Slight bruising slight puffiness to the eyelids, mild amount of jaw pain she states *Cardiovascular Cardiovascular: Reports as per HPI Comments: Denies chest pain at this time says she has a slight sternal pressure, denies radiation to jaw or arm *Respiratory Respiratory: Reports as per HPI Comments: When auscultating the patient for lung sounds she said on my wheezing. Like she has done that in the past. But there was no adventitious sounds at this time *Gastrointestinal Gastrointestinal: Reports as per HPI *Genitourinary Genitourinary: Reports as per HPI Comments: Patient denies any urinary symptoms or incontinence *Musculoskeletal Musculoskeletal: Reports as per HPI Comments: Patient noted she normally has bowel movements occasional constipation Integumentary/Breasts Skin/Breast: Reports as per HPI Comments: Even with the fall denied any chest wall or breast pain *Neurologic Neurologic: Reports as per HPI Psychiatric Psychiatric: Reports as per HPI Endocrine Endocrine: Reports as per HPI Hematologic/Lymphatic Hematologic/Lymphatic: Reports as per HPI Allergic/Immunologic Allergic/Immunologic: Reports as per HPI Meds Home Medications and Allergies Home Medications ?Medication ?Instructions ?Recorded ?Confirmed ?Type No Known Home Medications 05/24/24 05/24/24 History New Prescriptions to Start Prescriptions: Allergies Allergy/AdvReac Type Severity Reaction Status Date / Time No Known Allergies Allergy Verified 05/24/24 19:25 Exam Data for Last 24 hours Vital signs and Labs for Last 24 Hours: Temp Pulse Resp BP Pulse Ox O2 Del Method 97.8 F 76 18 125/80 95 Room Air 05/24/24 19:30 05/24/24 19:30 05/24/24 19:30 05/24/24 19:30 05/24/24 19:30 05/24/24 19:30 Laboratory Results - last 24 hr 05/24/24 19:25: WBC 12.6 H, RBC 4.49, Hgb 13.6, Hct 42.1, MCV 93.7, MCH 30.2, MCHC 32.2, RDW 14.0, Plt Count 320, MPV 8.2, Neut % (Auto) 79.7, Lymph % (Auto) 13.9, [place] % (Auto) 5.5, Eos % (Auto) 0.6, Baso % (Auto) 0.4, Neut # (Auto) 10.1 H, Lymph # (Auto) 1.8, [place] # (Auto) 0.7, Eos # (Auto) 0.1, Baso # (Auto) 0.1, PT 11.1, INR 0.99, APTT 31.0 L, Sodium 135 L, Potassium 4.5, Chloride 105, Carbon Dioxide 26, Anion Gap 8.5, BUN 20 H, Creatinine 0.90, Estimated Creat Clear 55, Estimated GFR 62, Est GFR ( Amer) 75, Glucose 115 H, Calcium 8.9, Magnesium 2.1, Troponin I 36.00 H I & O for Last 24 hours: Intake & Output 05/22/24 05/23/24 05/24/24 05/25/24 05:59 05:59 05:59 05:59 Weight 145 lb 7 oz Radiology Reports for the Last 24 Hours: Did not have x-ray report from other hospital have ordered chest x-ray for the floor Constitutional Constitutional: no acute distress, average body habitus and cooperative Comments: Patient is pleasant to talk to. She appears to be in no acute distress decides having a bruising to the right side of her face. After talking with her she says yeah I am gathering that this is pretty serious. Patient's condition and potential treatment have been explained to the patient *Routine HEENT Exam Head: Present normocephalic and Valenzuela's sign Eye: Present EOMI, PERRL and normal accommodation ENT: Present mucous membranes moist Comments: In looking at the patient's right side of the face is swelling with some bruising especially around the right orbit and temporal area., This we believe is related from a syncopal spell that she had falling from the bed and waking up on the floor. *Routine Neck Exam Neck: Present supple and full ROM Routine Chest/Breast/Axilla Exam Comments: No tenderness of the chest wall or the breast found no bruising to the chest wall found *Routine Respiratory Exam Respiratory: Present CTA bilaterally, normal respiratory effort, able to speak in complete sentences and symmetric chest movement Comments: Examination of the lungs the lungs are completely clear in all cotto despite her history of smoking there was no congestion rales or rhonchi heard she has no cough *Routine Cardiovascular Exam Cardiovascular: Present Normal S1, Normal S2 and irregular rhythm *Routine Abdominal Exam Abdominal: Present soft and normoactive bowel sounds *Routine Rectal Exam Rectal:: deferred *Routine Genitalia Exam Genitalia:: deferred *Routine Extremities Exam Comments: Examination extremities perfectly normal no signs of injury able to move all joints well equal bilateral strength skin turgor and color is normal Routine Back/Spine/Pelvis Exam Back/Spine: Present full ROM Comments: The patient is able to stand sit walk turn without any difficulty *Routine Skin Exam Skin: Present intact, normal turgor and ecchymosis (Noted above in face from fal l) *Routine Neurological Exam Neurological: Present alert, oriented X3, CN II-XII intact, normal reflexes, normal tone, vision grossly intact, hearing grossly intact and normal speech Comments: No neurologic deficits found Routine Psychiatric Exam Psychiatric: Present normal affect, normal thought process, cooperative, good insight and good judgment H&P: Result Impressions 1. Post CT with EKG changes of first-degree AV block significant versus third- degree block,, irregular rhythm 2. [id number] smoking history 3. Contusion right side of face from fall and syncopal episode Assessment and Plan *Assessment and plan (1) Myocardial infarction acute: Status: Acute Qualifiers: Myocardial infarction type: non-ST elevation myocardial infarction Qualified Code(s): I21.4 - Non-ST elevation (NSTEMI) myocardial infarction Category: Medical Code(s): I21.9 - Acute myocardial infarction, unspecified (2) Third degree heart block: Status: Acute Category: Medical Code(s): I44.2 - Atrioventricular block, complete (3) Syncope and collapse determined by examination: Status: Acute Category: Medical Code(s): R55 - Syncope and collapse (4) Contusion of face: Status: Acute Qualifiers: Encounter type: initial encounter Qualified Code(s): S00.83XA - Contusion of other part of head, initial encounter Category: Medical Code(s): S00.83XA - Contusion of other part of head, initial encounter (5) Tobacco dependency: Status: Acute Category: Medical Code(s): F17.200 - Nicotine dependence, unspecified, uncomplicated Plan Patient presented to [facility] with some chest pressure and after having had a fall. On initial workup, concern for elevated troponin on their high-sensitivity test of 33,000. Cardiology at [facility] was consulted for transfer and admission. Case was discussed with head grower and ER physician at [place], patient accepted in transfer, I decided to admit for further management. As her episode occurred more than 12 hours prior to admission, EKG has Q waves, patient has minimal symptoms at this time, decision made to medically manage with cardiology eval in the morning. Patient started on heparin drip. Problems addressed as follows: 1. For current cardiac condition status post CT with elevated troponin and third-degree heart block patient will be admitted to the floor expecting to have cardiac catheterization in the morning as cardiology has been consulted. Placed blood Nitropaste 1/2 inch, heparin drip started, patient will be monitored all night. If patient became unstable during the night or EKG change significantly would consult cardiology to see patient sooner than in the morning for potential catheterization. Initial troponin here was 36 2. Tobacco dependency [id number] history.. Patient's O2 sats are normal on room air at this time she is showing no respiratory distress but will have DuoNebs available if she needs them. Will also get an extra chest x-ray , nicotine patch placed. Also will do nasal swab to make sure that she has not been exposed to any respiratory viruses or bacteria 3. Facial contusion/syncope. Do feel that the patient had either a vagal event, or possibly abnormal arrhythmia that caused her syncope to fall from the bed to the floor. There is no signs of any neurologic damage at this point in time she will continue to be monitored. But presently believe this will heal up without any consequences. Noting that she has no changes in her vision Rounded on patient after nurse practitioner. Personally examined and interviewed patient. Agree with exam findings and care plan as documented. Patient appeared comfortable. Injury to right forehead but no active bleeding. Alert and oriented x 4. No complaint of significant chest pain. Asymptomatic from her 2-1 AV block seen on my personal review of EKG. Initiated on heparin drip. Repeat labs including lipid, CBC, CMP, magnesium, troponin ordered for the morning. Initial troponin at our facility of 30. Relatively consistent with findings at outside hospital. Will monitor for delta. Stable on room air. Monitoring continuous telemetry.
[2024-05-24 20:57] VITALS: BP 108/77; PULSE 65; RESP 18; O2SAT 96
[2024-05-24] MEDS: NITROGLYCERIN 1 GM OINTMENT 0.5 GM TD (20:59)
[2024-05-24] MEDS: HEPARIN SODIUM 5,000 UNIT/ML VIAL 4000 UNIT IV (21:03)
[2024-05-24] MEDS: PANTOPRAZOLE 40MG TABLET 40 MG PO (21:06)
[2024-05-24] MEDS: HEPARIN SODIUM,PORCINE/D5W 500 ML 16 UNIT IV (21:07)
[2024-05-24 21:54] LABS: Adenovirus,PCR Not Detected (NotDetected); Bordetella Pertussis Not Detected (NotDetected); Chlamydophila Pneumoniae, PCR Not Detected (NotDetected); Coronavirus 19, PCR Not Detected (NotDetected); Coronavirus 229E Not Detected (NotDetected); Coronavirus NL63 Not Detected (NotDetected); Coronavirus OC43 Not Detected (NotDetected); Coronovirus HKU1,PCR Not Detected (NotDetected); Human Metapneumovirus Not Detected (NotDetected); Influenza A, PCR Not Detected (NotDetected); Influenza AH1, 2009 Not Detected (NotDetected); Influenza AH1, PCR Not Detected (NotDetected); Influenza AH3,PCR Not Detected (NotDetected); Influenza B, PCR Not Detected (NotDetected); Mycoplasma Pneumoniae, PCR Not Detected (NotDetected); Parainfluenza 1, PCR Not Detected (NotDetected); Parainfluenza 2, PCR Not Detected (NotDetected); Parainfluenza 3, PCR Not Detected (NotDetected); Parainfluenza 4, PCR Not Detected (NotDetected); Respiratory Syncytial Virus Not Detected (NotDetected); Rhinovirus/Enterovirus Not Detected (NotDetected)
--- NOTE | 2024-05-24 23:14 | ECG_ITS ---
APPROVED REPORT Exam: Resting ECG HR:77 bpm ECG Measurements Heart Rate 77 AXES QRSd 77 QRS 18 QT 372 T 10 QTc 403 Conclusion AV Block - cw AV dissociation and 3 degree AV block ABNORMAL ECG UNCONFIRMED REPORT Electronically signed by : Javi Gates MD 05/25/2024 08:41:17
[2024-05-25] VITALS (23 sets, daily range): BP systolic 80–147; BP diastolic 38–71; PULSE 40–60; RESP 16–20; TEMP 36.5–37.1; O2SAT 95–100; BMI 21.6
--- NOTE | 2024-05-25 | IR_ITS ---
APPROVED REPORT Patient Location: Inpatient Private Equity Associate: MAHAD Ellison RT (R) PROCEDURES Selective coronary angiogram Mechanical thrombectomy to the mid dominant right coronary artery Drug-eluting stent deployment to the ostial proximal mid and distal dominant right coronary contiguous manner INDICATION Acute inferior ST elevation myocardial infarction, Coronary artery disease Informed consent was obtained prior to the procedure. COMPLICATIONS None Estimated Blood Loss: Less than 10 mls TECHNIQUE One percent lidocaine used to anesthetize the right anterior aspect of the wrist. The right radial artery was accessed via the Seldinger technique. A 6 Mongolian sheath was placed in the right radial artery. 2.5 mg of Verapamil, 800 mcg of nitroglycerin, 1mg Lidocaine and 5000 U Heparin were given through the arterial sheath. The 6 Mongolian JL 3 guide catheter was used to perform selective coronary angiogram. At the end of the diagnostic angiogram therapeutic Was administered giving a therapeutic ACT and the guide catheter was placed on the right coronary followed by Choice PT for support wire placed distally past the thrombosis. A penumbra mechanical thrombectomy catheter was advanced which removed a partial thrombus in increased flow from TYSON 0 to TYSON I. Following this a 3 mm x 18 mm balloon was deployed at 12 erick in the mid and distal dominant right coronary artery restoring flow. A 3 mm x 38 mm [place] frontier stent was deployed at 12 erick distally restoring flow. An additional 3 mm x 38 mm [place] frontier stent was placed proximal to the for stent yet still overlapping and deployed at 20 erick. An additional 3 mm x 18 mm [place] frontier stent was placed in the ostial segment and connecting into the second stent and deployed at 24 erick. The balloon was advanced and deployed at 24 erick throughout the right coronary. Distally the balloon was advanced and deployed at 18 erick just proximal to the distal portion of the for stent placed. TYSON-3 flow was present at the end of the procedure. Following this 800 mcg of intracoronary nitroglycerin was administered which also improved diameter of the distal vessel. At the end the procedure after achieving excellent angiograph results apparatus was removed the sheath was removed and hemostasis was achieved using TR banding patient was transferred to the postop putting in stable condition. During the catheterization after the right coronary artery was initially revascularized 2-1 AV block improved to 1-1 conduction. By the end of the case patient was back into a 2-1 AV block. ANGIOGRAPHIC RESULTS The left main artery Normal The left anterior descending artery Has an ostial proximal 40 to 50% stenosis followed by an additional mid vessel 40 to 50% stenosis. The first diagonal artery is a large vessel and has proximal 40 and 50% stenosis The circumflex artery Is nondominant and large with proximal tendon 20% stenosis The right coronary artery Large dominant with proximal 50 to 60% stenosis and occluded at the level of the RV marginal branch. Following revascularization the ostial proximal mid and distal right coronary artery was widely patent with inline TYSON-3 flow distally supplying a posterior descending and posterior lateral branch The MACEDO ventriculogram reveals Was not performed The left ventricular end-diastolic pressure Was not measured IMPRESSION Successful percutaneous revascularization of the ostial proximal mid distal dominant right coronary artery 100% occlusion reduced to 0% with 3 contiguous drug-eluting stents Transient mormonism of one-to-one AV conduction Persistent moderate stenosis in the proximal and mid LAD as described above PLAN 1. Plavix 75 mg daily plus aspirin 81 mg daily 2. LDL less than 55 to be achieved with high intensity statin 3. I encouraged patient experienced one-to-one AV conduction after opening the right coronary artery. Patient did degenerate back into 2-1 AV block however is currently hemodynamically stable. I would like to watch patient for the next 24 hours to determine if permanent pacemaker is required. I do believe there is a reasonable chance the AV node will improve and prevent patient from requiring pacemaker placement 4. Start PHILOMENA inhibitor's 5. Cardiac rehabilitation 6. Continuous telemetry Electronically signed by : Deshawn Hoyos MD 05/25/2024 13:09:31
[2024-05-25] MEDS: MELATONIN 5MG TABLET 5 MG PO (02:43)
[2024-05-25 03:38] LABS: PTT Heparin (inpatient only) 34.3 Seconds (50-75)
[2024-05-25] MEDS: HEPARIN SODIUM 5,000 UNIT/ML VIAL 4000 UNIT IV (03:54)
[2024-05-25] MEDS: HEPARIN SODIUM,PORCINE/D5W 500 ML 20 UNIT IV (03:57)
--- NOTE | 2024-05-25 03:57 | PC.NURSE ---
Spoke with Sayda at [facility] regarding PTT. Increased heparing gtt to 20 mls/hr and administered 4000 unit bolus
--- NOTE | 2024-05-25 04:33 | PC.NURSE ---
Hospitalist notified of patients 0400 hypotension and bradycardia. No new orders given. Continuing to monitor patient.
[2024-05-25 06:52] LABS: Albumin Level 3.6 g/dl (3.5-5.0); Chloride 107 mmol/L (98-107); Sodium 133 mmol/L (136-145)
[2024-05-25 06:53] LABS: Potassium 4.1 mmoL/L (3.5-5.1)
[2024-05-25 06:55] LABS: Alanine Aminotransferase 35 U/L (12-78); Albumin/Globulin Ratio 1.4 (1.1-1.8); Alkaline Phosphatase 98 U/L (38-126); Anion Gap 7.1 mEq/L (5-15); Aspartate Amino Transferase 243 U/L (14-36); Bilirubin,Total 0.6 mg/dl (0.2-1.3); Blood Urea Nitrogen 24 mg/dl (7-17); Calcium 8.3 mg/dl (8.4-10.2); Carbon Dioxide 23 mmol/L (22.0-30.0); Cholesterol 248 mg/dl (140-200); Creatinine Clearance Estimated 46 mL/min (50-200); Estimated Glomerular Filt Rate 62 ml/min (>60); GFR (African American) 75 ML/MIN (>60); Globulin 2.6 g/dL (1.3-3.2); Glucose 127 mg/dl (74-100); Total Protein,Serum 6.2 g/dl (6.3-8.2); Triglycerides 132 mg/dl (30-150); VLDL Cholesterol 26 mg/dL (0-40)
[2024-05-25 06:56] LABS: HDL Cholesterol 62 mg/dl (40-60); Magnesium 2.1 mg/dl (1.6-2.3)
[2024-05-25 07:07] LABS: Basophils % 0.3 % (0.1-2.0); Direct LDL Cholesterol 139.75 mg/dL (100-129); Eosinophils % 0.2 % (0.1-12.0); Hematocrit 37.5 % (37.0-47.0); Hemoglobin 12.7 g/dL (12.2-16.2); Lymphocytes # 1.7 K/mm3 (0.7-4.5); Lymphocytes % 12.2 % (10-50); Mean Corpuscular HGB Conc 33.8 g/dL (31.8-35.4); Mean Corpuscular Hemoglobin 31.1 pg (27.0-31.2); Mean Platelet Volume 8.3 fl (7.4-10.4); Monocytes % 6.9 % (1.7-9.3); Neutrophils # 11.4 K/mm3 (1.8-7.8); Neutrophils % 80.4 % (37.0-80.0); Platelet Count 284 K/mm3 (142-424); Red Blood Count 4.07 M/mm3 (4.20-5.40); Red Cell Distribution Width 14.1 % (11.5-17.5); White Blood Count 14.2 K/mm3 (4.8-10.8)
[2024-05-25 07:26] LABS: Thyroid Stimulating Hormone 0.86 uIU/mL (0.465-4.68)
--- NOTE | 2024-05-25 07:45 | HMH.PHAHEP ---
[facility] Heparin Dosing Demographic Data Admission date:: 05/24/24 Date: 05/25/24 Time: 07:45 Allergies Allergy/AdvReac Type Severity Reaction Status Date / Time No Known Allergies Allergy Verified 05/24/24 19:25 Height: 1.6 m Weight: 55.293 kg Indication Medication therapy:: Heparin Current Indications:: ACS (NSTEMI) - LOW DOSE PROTOCOL Current Active Problems (Updated 05/25/24 @ 08:42 by CROW Olsen) Contusion of face (Acute) Syncope and collapse determined by examination (Acute) Tobacco dependency (Acute) Third degree heart block (Acute) Myocardial infarction acute (Acute) CVA?: No Bleeding problem?: No Kidney disease?: No KS?: Yes Additional History:: HYPERLIPIDEMIA, CURRENT SMOKER Desired PTT range:: 50-75 seconds Comments:: BASELINE PTT: 31.0 SECONDS Labs Anticoagulation Lab Results:: 05/24/24 05/25/24 19:25 06:03 Hgb 13.6 12.7 Hct 42.1 37.5 Plt Count 320 284 Monitoring Dose Monitor 1: Date: 05/24/24 Time: 19:25 PTT Result:: BASELINE PTT: 31.0 SECONDS Infusion Rate:: REGULO RECOMMENDED INITIATING HEPARIN DRIP AT 800 UNITS/HOUR = 16 ML/HOUR AND BOLUSING 4000 UNITS HEPARIN IV ONCE. Comment:: PLATELET COUNT = 320,000 Dose Monitor 2: Date: 05/25/24 Time: 03:10 PTT Result:: 34.3 SECONDS Infusion Rate:: REGULO RECOMMENDED INCREASING HEPARIN DRIP TO 1000 UNITS/HOUR = 20 ML/HOUR AND BOLUSING 4000 UNITS HEPARIN IV ONCE. Dose Monitor 3: Date: 05/25/24 Time: 09:00 PTT Result:: 44.4 SECONDS Infusion Rate:: RECOMMEND INCREASING HEPARIN DRIP TO 1100 UNITS/HOUR = 22 ML/HOUR. PER PATIENT'S NURSE, PATIENT TO GO TO SCANNING COORDINATOR SHORTLY. Comment:: PLATELET COUNT = 284,000 Core Measures Is INR > or = 2 at discharge?: No Most Recent Labs:: Laboratory Results - last 24 hr 05/24/24 19:25: WBC 12.6 H, RBC 4.49, Hgb 13.6, Hct 42.1, MCV 93.7, MCH 30.2, MCHC 32.2, RDW 14.0, Plt Count 320, MPV 8.2, Neut % (Auto) 79.7, Lymph % (Auto) 13.9, [place] % (Auto) 5.5, Eos % (Auto) 0.6, Baso % (Auto) 0.4, Neut # (Auto) 10.1 H, Lymph # (Auto) 1.8, [place] # (Auto) 0.7, Eos # (Auto) 0.1, Baso # (Auto) 0.1, PT 11.1, INR 0.99, APTT 31.0 L, Sodium 135 L, Potassium 4.5, Chloride 105, Carbon Dioxide 26, Anion Gap 8.5, BUN 20 H, Creatinine 0.90, Estimated Creat Clear 55, Estimated GFR 62, Est GFR ( Amer) 75, Glucose 115 H, Calcium 8.9, Magnesium 2.1, Troponin I 36.00 H 05/24/24 21:40: Chlamy pneumoniae PCR Not detected, Adenovirus (PCR) Not detected, B. pertussis DNA (PCR) Not detected, Coronavirus OC43 (PCR) Not detected, Coronavirus HKU1 (PCR) Not detected, Coronavirus 229E (PCR) Not detected, SARS-CoV-2 (PCR) Not detected, Coronavirus NL63 (PCR) Not detected, Human Metapneumovir PCR Not detected, Influenza A (H1) PCR Not detected, Influ A (H1N1/09) PCR Not detected, Influenza A (H3) PCR Not detected, Influenza Type A (PCR) Not detected, Influenza Type B (PCR) Not detected, M. pneumoniae (PCR) Not detected, Parainfluenza 1 (PCR) Not detected, Parainfluenza 2 (PCR) Not detected, Parainfluenza 3 (PCR) Not detected, Parainfluenza 4 (PCR) Not detected, RSV (PCR) Not detected, Entero/Rhino (PCR) Not detected 05/24/24 22:22: Troponin I 40.60 H 05/25/24 01:15: Troponin I 39.80 H 05/25/24 03:10: APTT 34.3 L 05/25/24 06:03: WBC 14.2 H, RBC 4.07 L, Hgb 12.7, Hct 37.5, MCV 92.0, MCH 31.1, MCHC 33.8, RDW 14.1, Plt Count 284, MPV 8.3, Neut % (Auto) 80.4 H, Lymph % (Auto) 12.2, [place] % (Auto) 6.9, Eos % (Auto) 0.2, Baso % (Auto) 0.3, Neut # (Auto) 11.4 H, Lymph # (Auto) 1.7, [place] # (Auto) 1.0, Eos # (Auto) 0.0, Baso # (Auto) 0.0, Sodium 133 L, Potassium 4.1, Chloride 107, Carbon Dioxide 23, Anion Gap 7.1, BUN 24 H, Creatinine 0.90, Estimated Creat Clear 46, Estimated GFR 62, Est GFR ( Amer) 75, Glucose 127 H, Calcium 8.3 L, Magnesium 2.1, Total Bilirubin 0.6, AST 243 H, ALT 35, Alkaline Phosphatase 98, Total Protein 6.2 L, Albumin 3.6, Globulin 2.6, Albumin/Globulin Ratio 1.4, Triglycerides 132, Cholesterol 248 H, LDL Cholesterol Direct 139.75 H, VLDL Cholesterol 26, HDL Cholesterol 62 H, Cholesterol/HDL Ratio 4.0 H If INR was < than 2.0 why was therapy stopped?: PATIENT TAKEN TO SCANNING COORDINATOR, STARTED ON PLAVIX/ASPIRIN Were Heparin and Warfarin started on the same day?: No If not, why?: PATIENT STARTED ON PLAVIX/ASPIRIN FOLLOWING SCANNING COORDINATOR.
--- NOTE | 2024-05-25 07:55 | ECG_ITS ---
APPROVED REPORT Exam: Resting ECG HR:45 bpm ECG Measurements Heart Rate 45 AXES QRSd 80 QRS 9 QT 460 T 64 QTc 417 Conclusion [address] ELEVATION, CONSIDER INFERIOR INJURY [MARKED ST ELEVATION W/O NORMALLY INFLECTED T-WAVE IN II/aVF] ACUTE GA UNCONFIRMED REPORT Electronically signed by : Javi Gates MD 05/25/2024 08:48:01
[2024-05-25 08:05] LABS: Hemoglobin A1C 5.4 % (4.0-6.0)
--- NOTE | 2024-05-25 08:27 | EXP.CARD.CON ---
History of Present Illness History of Present Illness Consult date: 05/25/24 Requesting physician: Marcelo Roberson Chief complaint: chest pain, syncope, intermittent 2:1 heart block Additional Medical History:: 1. Hyperlipidemia history of non-compliance with cholesterol meds LDL 139 in 05/2024 2. Tobacco use, 1.5 ppd 3. Syncope with right orbital bruising, 05/2024 4. Delayed presentation of AL with intermittent 2:1 heart block A. Echo, 05/25/2024, EF preserved 5. Pulmonary edema on CXR, 05/25/2024 A. BNP 1960 but clinically stable and able to lie flat without symptoms. No diuretic due to low BP. History of present illness: This 69-year-old female has been transferred from [facility]. Per the patient she said she did have a CAT scan of her head related to a fall. Patient is a 50+ year smoker. She was sitting on side of her bed as she remembers was coughing very hard trying to spit some junk up into a garbage can. She is not sure what happened but she woke up on the floor with bruising to the right side of her face near the eye. She does not remember the event she said she also found a little blood on her pillow from the fall but she does not remember laying her head on the pillow after the fall. She said she did have a CAT scan done at [place]. Dr. Hoyos was contacted by [facility] and we have excepted admission of the patient to the floor. The patient is stable at this time alert oriented showing no sign of weakness on either side, no signs of confusion no signs of slurring of speech. I been informed she has received aspirin and Lovenox before transfer.. She is in a changing third-degree block that could be a significant first-degree AV block at times. Heart rate remaining in the 60s. Other vital signs in normal limits. She states she has a small amount of chest pressure and a little bit of headache from her fall. She denies any respiratory symptoms. And she denies being ill before this event. Patient has been examined after caudal has been updated on the patient. Orders have been placed planning to do a cardiac cath in the morning is the agenda. If the patient was to change become unstable would notify cardiology tonight if a more immediate cardiac cath was needed.. Will place on a heparin drip half inch of Nitropaste appropriate labs have been ordered to be rechecked in the morning including an EKG , nicotine patch has been applied. Patient is a smoker but said she was coughing so we will do the respiratory panel to make sure there is no viral infection on top of this and do a chest x-ray. Breathing treatments will be held as as needed as the patient is in no distress at this time saturations 95% on room air. Past medical history, the patient states she normally does not see a doctor very often., She noted she gets most of her normal immunizations, has had normal for women's health exams in the past and also including colonoscopy. She has not spent the night in the hospital since she has not been a much younger person. And despite being more than a 50 pack-year smoker. Patient looks younger than her 69 years she appears to be in good health with good nutrition and normal body weight. Noting we have no record of her in our medical system., So all history is directly from the patient. The above per Carlitos Meenses APRN and Dr. Roberson's note Pt had chest and arm ache for 2-3 days prior to presenting to [facility]. EKG's show Q waves inferiorly in association with elevated troponins consistent with recent AL. Subsequently transferred to [facility] for further evaluation. Echo performed this AM with preliminary EF looking to be preserved. Telemetry shows sinus rhythm with intermittent 2:1 AV block. Pt and sister in room. 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 BP is borderline low but pt is stable at this time. [facility] Disclaimer: The information contained in this section may have been updated after the patient was seen, as this information can be updated by other users. Medical History (Updated 05/25/24 @ 08:42 by CROW Olsen) Skin cancer Hyperlipidemia Surgical History (Updated 05/25/24 @ 00:01 by Erni Parish RN) History of hand surgery Family History (Updated 05/24/24 @ 21:38 by Erin Parish RN) Other Family history of Alzheimer's disease Family history of cancer Family history of diabetes mellitus type II Family history of hypertension Family history of myocardial infarction Family history of stroke Social History (Updated 05/24/24 @ 21:40 by Erin Parish RN) Smoking Status: Current every day smoker Tobacco counseling given: provider counseling alcohol intake: current current occupational status: retired Travel in the last 8 weeks: None Review of Systems Review of Systems Review of systems:: pertinent systems reviewed and negative unless documented below *Cardiovascular Cardiovascular: Reports chest pain and Reports dyspnea on exertion *Respiratory Respiratory: Reports dyspnea on exertion *Neurologic Neurologic: Reports as per HPI Exam Data for Last 24 hours Vital signs and Labs for Last 24 Hours: Temp Pulse Resp BP Pulse Ox O2 Del Method 98.2 F 47 L 0 L 85/55 L 97 Room Air 05/25/24 04:00 05/25/24 04:00 05/25/24 07:50 05/25/24 04:00 05/25/24 04:00 05/25/24 06:35 Laboratory Results - last 24 hr 05/24/24 19:25: WBC 12.6 H, RBC 4.49, Hgb 13.6, Hct 42.1, MCV 93.7, MCH 30.2, MCHC 32.2, RDW 14.0, Plt Count 320, MPV 8.2, Neut % (Auto) 79.7, Lymph % (Auto) 13.9, [place] % (Auto) 5.5, Eos % (Auto) 0.6, Baso % (Auto) 0.4, Neut # (Auto) 10.1 H, Lymph # (Auto) 1.8, [place] # (Auto) 0.7, Eos # (Auto) 0.1, Baso # (Auto) 0.1, PT 11.1, INR 0.99, APTT 31.0 L, Sodium 135 L, Potassium 4.5, Chloride 105, Carbon Dioxide 26, Anion Gap 8.5, BUN 20 H, Creatinine 0.90, Estimated Creat Clear 55, Estimated GFR 62, Est GFR ( Amer) 75, Glucose 115 H, Calcium 8.9, Magnesium 2.1, Troponin I 36.00 H 05/24/24 21:40: Chlamy pneumoniae PCR Not detected, Adenovirus (PCR) Not detected, B. pertussis DNA (PCR) Not detected, Coronavirus OC43 (PCR) Not detected, Coronavirus HKU1 (PCR) Not detected, Coronavirus 229E (PCR) Not detected, SARS-CoV-2 (PCR) Not detected, Coronavirus NL63 (PCR) Not detected, Human Metapneumovir PCR Not detected, Influenza A (H1) PCR Not detected, Influ A (H1N1/09) PCR Not detected, Influenza A (H3) PCR Not detected, Influenza Type A (PCR) Not detected, Influenza Type B (PCR) Not detected, M. pneumoniae (PCR) Not detected, Parainfluenza 1 (PCR) Not detected, Parainfluenza 2 (PCR) Not detected, Parainfluenza 3 (PCR) Not detected, Parainfluenza 4 (PCR) Not detected, RSV (PCR) Not detected, Entero/Rhino (PCR) Not detected 05/24/24 22:22: Troponin I 40.60 H 05/25/24 01:15: Troponin I 39.80 H 05/25/24 03:10: APTT 34.3 L 05/25/24 06:03: WBC 14.2 H, RBC 4.07 L, Hgb 12.7, Hct 37.5, MCV 92.0, MCH 31.1, MCHC 33.8, RDW 14.1, Plt Count 284, MPV 8.3, Neut % (Auto) 80.4 H, Lymph % (Auto) 12.2, [place] % (Auto) 6.9, Eos % (Auto) 0.2, Baso % (Auto) 0.3, Neut # (Auto) 11.4 H, Lymph # (Auto) 1.7, [place] # (Auto) 1.0, Eos # (Auto) 0.0, Baso # (Auto) 0.0, Sodium 133 L, Potassium 4.1, Chloride 107, Carbon Dioxide 23, Anion Gap 7.1, BUN 24 H, Creatinine 0.90, Estimated Creat Clear 46, Estimated GFR 62, Est GFR ( Amer) 75, Glucose 127 H, Hemoglobin A1c 5.4, Calcium 8.3 L, Magnesium 2.1, Total Bilirubin 0.6, AST 243 H, ALT 35, Alkaline Phosphatase 98, Total Protein 6.2 L, Albumin 3.6, Globulin 2.6, Albumin/Globulin Ratio 1.4, Triglycerides 132, Cholesterol 248 H, LDL Cholesterol Direct 139.75 H, VLDL Cholesterol 26, HDL Cholesterol 62 H, Cholesterol/HDL Ratio 4.0 H, TSH 0.86 I & O for Last 24 hours: Intake & Output 11/30/24 12/01/24 12/02/24 12/03/24 11:59 11:59 11:59 11:59 Output Total 0 / 0 Balance 0 / 0 Weight 121 lb 14.403 oz Constitutional Constitutional: mild distress *Routine Respiratory Exam Respiratory: Present CTA bilaterally; Absent wheezes *Routine Cardiovascular Exam Cardiovascular: Present bradycardia and irregular rhythm *Routine Extremities Exam Extremities: Absent edema *Routine Neurological Exam Neurological: Present alert, oriented X3 and CN II-XII intact Meds Home Medications and Allergies Home Medications ?Medication ?Instructions ?Recorded ?Confirmed ?Type No Known Home Medications 05/24/24 05/24/24 History New Prescriptions to Start Prescriptions: Allergies Allergy/AdvReac Type Severity Reaction Status Date / Time No Known Allergies Allergy Verified 05/24/24 19:25 Assessment and Plan *Assessment and plan (1) Syncope and collapse determined by examination: Status: Acute Category: Medical Code(s): R55 - Syncope and collapse (2) Contusion of face: Status: Acute Qualifiers: Encounter type: initial encounter Qualified Code(s): S00.83XA - Contusion of other part of head, initial encounter Category: Medical Code(s): S00.83XA - Contusion of other part of head, initial encounter (3) Myocardial infarction acute: Status: Acute Qualifiers: Myocardial infarction type: non-ST elevation myocardial infarction Qualified Code(s): I21.4 - Non-ST elevation (NSTEMI) myocardial infarction Category: Medical Code(s): I21.9 - Acute myocardial infarction, unspecified (4) Third degree heart block: Status: Acute Category: Medical Code(s): I44.2 - Atrioventricular block, complete (5) Tobacco dependency: Status: Acute Category: Medical Code(s): F17.200 - Nicotine dependence, unspecified, uncomplicated Plan 1. AL with syncope and intermittent 2:1 AV block -start aspirin -Trop max 40.6 -unable to add BB or PHILOMENA/ARB/Entresto due to borderline low BP -Delayed presentation to outside hospital with Q waves noted on EKG -echo report pending but prelim looks to show preserved EF -recommend [facility] today -recommend monitoring on telemetry to see if pacemaker is needed (pt is having periods of sinus rhythm with 1:1 conduction) 2. Right orbital contusion 3. Tobacco use -cessation recommended 4. History of hyperlipidemia -history of noncompliance with medication -LDL 139 5. Pulmonary edema -BNP 1959 -no diuretic due to low BP and clinically able to lie flat without symptoms [facility] today continue to observe on telemetry to decide if pacemaker needed. Monitor vitals and institute GDMT as able Echocardiogram today shows EF 60% with no wall motion abnormalities. No significant valve disease noted. Cardiac catheter report: 3 KENDRA placed to ostial proximal mid and distal RCA. Moderate stenosis of proximal and mid LAD persist and will be treated medically. Patient had transient religion of one-to-one AV conduction after opening the RCA. Medication recommendations: Aspirin 81 mg daily Plavix 75 mg daily Losartan 25 mg daily if blood pressure allows Atorvastatin 40 mg daily if able to tolerate Monitor patient for 24 hours to see if she will need pacemaker implantation for recurrent conduction abnormality.
[2024-05-25 08:34] LABS: NT Pro Brain Natriuretic Pep. 1960 pg/mL (0-125)
[2024-05-25] MEDS: ASPIRIN 81MG CHEWABLE TABLET 81 MG PO (09:20)
[2024-05-25 10:33] LABS: PTT Heparin (inpatient only) 44.4 Seconds (50-75)
--- OUTSIDE RECORDS SUMMARY | 2024-05-25 10:44 | XMS_ITS | Encounter Summary ---
Author Organization [facility] Address [address] [place] [address] Care Team Providers Care Clam Digger Name Role Phone Unavailable Primary Care Provider Unavailabl e Encounter Details Date Type Department Care Team (Late st Contact Info) Description 06/05/2011 Historical Mammograp hy Encounter [facility] [address] [place] [address] Interface, See Report Social History [...] PM EST ?[facility] ? [address] ??[place], [place] [address] ? NAME: HYUN MAURER ? : ??[birth year] ??MR#: [id number] ? LOC: ?? DIS ? AGE: 56Y ?? Pt type: CO ?Exam Date: 06/05/11 1425 ? SEX: F ?? AN#:[id number] ?Ck-in#: [id number] ? [facility] ? [address] ? [address] ? [place] ?[place] ?[address] ? Chk-in # ?? Order ?Exam ?[id number] ?? 0001 ? [id number] ??AB MAMM SCREEN BILAT DIG PNL ? [...] RADIOLOGY REPORT ?[facility] ? [address] ??[place], [place] [address] ? NAME: HYUN MAURER ? : ??[birth year] ??MR#: [id number] ? LOC: ?? DIS ? AGE: 56Y ?? Pt type: CO ?Exam Date: 06/05/11 1425 ? SEX: F ?? AN#:[id number] ?Ck-in#: [id number] ? [facility] ? [address] ? [address] ? [place] ?[place] ?[address] ? Checkin-Exam Code Summary ? [phone] mailed to the patient. ?/READ BY/ PETER ABRAMS-MD ?/Released By/ PETER ABRAMS-MD ?Released By Date/Time: ??12/15/11 1332 ?Formula Weigher: ??DME ? FINAL ? Page ??2 ? RADIOLOGY REPORT us See Report Interface IMG MAMMOGRAPHY ORDERABLES Final Result documented in this encounter Visit Diagnoses Not on filedocumented in this encounter
--- OUTSIDE RECORDS SUMMARY | 2024-05-25 10:44 | XMS_ITS | Encounter Summary ---
Author Organization [facility] Address [address] [place] [address] Care Team Providers Care Anatomy And Physiology Instructor Name Role Phone Unavailable Primary Care Provider Unavailabl e Encounter Details Date Type Department Care Team (Late st Contact Info) Description 12/04/2006 Historical Mammograp hy Encounter [facility] [address] [place] [address] Interface, See Report Social History [...] PM EDT Narrative 12/05/2006 1:20 PM EDT ?[facility] ? [address] ??[place], [place] [address] ? NAME: HYUN MAURER ? : ??[birth year] ??MR#: [id number] ? LOC: ?? DIS ? AGE: 51Y ?? Pt type: CO ?Exam Date: 12/04/067 ? SEX: F ?? AN#:[id number] ?Ck-in#: [id number] ? [facility] ? [address] ? [address] ? [place] ?[place] ?[address] ? Chk-in # ?? Order ?Exam ?[id number] ?? 0001 ? [id number] ??AB MAMMO SCREEN BILAT DIGITAL PNL ? [...] FINAL ?CONTINUED ?Page ??1 ? RADIOLOGY REPORT ?[facility] ? [address] ??[place], [place] [address] ? NAME: HYUN MAURER ? : ??[birth year] ??MR#: [id number] ? LOC: ?? DIS ? AGE: 51Y ?? Pt type: CO ?Exam Date: 12/04/061446 ? SEX: F ?? AN#:[id number] ?Ck-in#: [id number] ? [facility]AND[facility] E ? [address] ? [address] ? [place] ?[place] ?[address] ? Checkin-Exam Code Summary ? [phone] false negative rate of mammography. ?? ICAD was utilized. ?? A copy of this report in lay terminology has been sent to the patient. ?/READ BY/ HETAL NGUYEN ?/Released By/ HETAL NGUYEN ?Released By Date/Time: ??06/15/07 1312 ?Information Broker: ??JBW ? FINAL ? Page ??2 ? RADIOLOGY REPORT us See Report Interface IMG MAMMOGRAPHY ORDERABLES Final Result documented in this encounter Visit Diagnoses Not on filedocumented in this encounter
--- OUTSIDE RECORDS SUMMARY | 2024-05-25 10:44 | XMS_ITS | Encounter Summary ---
Author Organization [facility] Address [address] [place] [address] Care Team Providers Care Superintendent General Name Role Phone Arturo Piper MD Primary Care Provider [phone] Reason for Referral * Diagnostic Imaging (Routine) - Closed Specialty Diagnoses / Procedures Referred By Alexandra melchor Referred To Contact Radiology Diagnoses Visit for screening mammogram Procedures Mammo Screening Digital Tomosynthesis Bilateral With CAD Arturo Piper MD [address] [place] [address] Phone: tel: fax: [address] [address] Phone: tel: fax: Referral ID Status Reason Start Date Expiration Date Visits Re quested Visits Authorized [id number] Closed 08/06/2018 08/06/2019 1 1 Reason for Visit * Diagnostic Imaging (Routine) - Closed Specialty Diagnoses / Procedures Referred By Alexandra melchor Referred To Contact Radiology Diagnoses Visit for screening mammogram Procedures Mammo Screening Digital Tomosynthesis Bilateral With CAD Arturo Piper MD [address] [place] [address] Phone: tel: fax: [address] [address] Phone: tel: fax: Referral ID Status Reason Start Date Expiration Date Visits Re quested Visits Authorized [id number] Closed 08/06/2018 08/06/2019 1 1 Encounter Details Date Type Department Care Team (Latest Contact Info) Description 08/18/2018 11:15 AM EST - 08/18/2018 11:59 PM EST Hospital Encounter [facility] [address] [place] [address] Arturo Piper MD [address] [facility] [address] [place] [address] Visit for screening mammogram Discharge Disposition: Home [...] mammogram documented in this encounter Care Teams Superintendent General Relationship Specialty [place] [address] [place] [address] PCP - General Family Medicine 01/31/17 documented as of this encounter
--- OUTSIDE RECORDS SUMMARY | 2024-05-25 10:44 | XMS_ITS | Encounter Summary ---
Author Organization [facility] Address [address] [id number] Care Team Providers Care Recycling Program Manager Name Role Phone Arturo Piper MD Primary Care Provider [phone] Reason for Referral * Diagnostic Imaging (Routine) - Closed Specialty Diagnoses / Procedures Referred By Alexandra melchor Referred To Contact Radiology Diagnoses Tobacco dependency Procedures CT Chest With Contrast Arturo Piper MD [address] [place] [address] Phone: tel: fax: [place] [phone] Phone: tel: Referral ID Status Reason Start Date Expiration Date Visits Re quested Visits Authorized [id number] Closed 03/05/2022 03/05/2023 1 1 Reason for Visit * Diagnostic Imaging (Routine) - Closed Specialty Diagnoses / Procedures Referred By Alexandra melchor Referred To Contact Radiology Diagnoses Tobacco dependency Procedures CT Chest With Contrast Arturo Piper MD [address] [place] [address] Phone: tel: fax: [place] [phone] Phone: tel: Referral ID Status Reason Start Date Expiration Date Visits Re quested Visits Authorized [id number] Closed 03/05/2022 03/05/2023 1 1 Encounter Details Date Type Department Care Team (Latest Contact Info) Description 03/13/2022 3:04 PM EDT - 03/13/2022 11:59 PM EDT Hospital Encounter [facility] [address] [facility] [place] [address] Arturo Piper MD [address] [facility] [address] [place] [address] Tobacco dependency Discharge Disposition: Home [...] - 1.30 mg/dL 03/13/2022 4:03 PM EDT [facility] Comment:Serial Number: [id number] 7Operator: [id number] Blood 03/13/2022 3:42 PM EDT 03/13/2022 4:03 PM EDT Arturo Piper MD POINT OF CARE TEST ORDERABLES F inal Result [facility]
[address] [place] [address], documented in this encounter Visit Diagnoses Diagnosis [...] Arm documented in this encounter Care Teams Recycling Program Manager Relationship Specialty Start Date End Date Arturo Piper MD [address] [place] [address] PCP - General Family Medicine 01/31/17 documented as of this encounter
--- OUTSIDE RECORDS SUMMARY | 2024-05-25 10:44 | XMS_ITS | Encounter Summary ---
Author Organization [facility] Address [address] [id number] Care Team Providers Care Design Studio Consultant Name Role Phone Arturo Piper MD Primary Care Provider [phone] Reason for Referral * Diagnostic Imaging (Routine) - Closed Specialty Diagnoses / Procedures Referred By Alexandra melchor Referred To Contact Radiology Diagnoses Visit for screening mammogram Procedures Mammo Screening Digital Tomosynthesis Bilateral With CAD Arturo Pipre MD [address] [place] [address] Phone: tel: fax: Referral ID Status Reason Start Date Expiration Date Visits Re quested Visits Authorized [id number] Closed 09/02/2022 09/02/2023 1 1 Reason for Visit * Diagnostic Imaging (Routine) - Closed Specialty Diagnoses / Procedures Referred By Alexandra melchor Referred To Contact Radiology Diagnoses Visit for screening mammogram Procedures Mammo Screening Digital Tomosynthesis Bilateral With CAD Arturo Piper MD [address] [place] [address] Phone: tel: fax: Referral ID Status Reason Start Date Expiration Date Visits Re quested Visits Authorized [id number] Closed 09/02/2022 09/02/2023 1 1 Encounter Details Date Type Department Care Team (Latest Contact Info) Description 09/30/2022 2:55 PM EDT - 09/30/2022 11:59 PM EDT Hospital Encounter [address] [address] Arturo Piper MD [address] [place], [place] [id number] Visit for screening mammogram Discharge Disposition: Home [...] mammogram documented in this encounter Care Teams Design Studio Consultant Relationship Specialty Start Date End Date Arturo Piper MD [address] [place] [address] PCP - General Family Medicine 01/31/17 documented as of this encounter
--- OUTSIDE RECORDS SUMMARY | 2024-05-25 10:44 | XMS_ITS | Clinical Summary ---
Author Organization [facility] Address [address] [place] [address] Care Team Providers Care Net Programmer Analyst Name Role Phone Arturo Piper MD Primary Care Provider [phone] Family History Medical History Relation Name Comments [...] of distortion are seen. Arturo Piper MD [facility] MAMMOGRAPHY ORDERABLES Alix l Result from Last 3 Months or Most Recently Relevant to Health Maintenance Insurance MEDICARE A & B Member Subscriber Plan / Payer ( fective 2018-Present) Name:Hyun Sanchez Member ID:[id number] Relation to Subscriber:Self Name:Hyun Sanchez Subscriber ID:[id number] Payer ID:[id number] Group ID:Not on file Type:Not on file Address: [id number] [employer] Care Teams Net Programmer Analyst Relationship Specialty Start Date End Date Arturo Piper MD [address] [place] [address] PCP - General Family Medicine 01/31/17
--- OUTSIDE RECORDS SUMMARY | 2024-05-25 10:44 | XMS_ITS | Encounter Summary ---
Author Organization [facility] Address [address] [place] [address] Care Team Providers Care Manager Print Name Role Phone Unavailable Primary Care Provider Unavailabl e Encounter Details Date Type Department Care Team (Late st Contact Info) Description 08/31/2013 9:37 AM EDT - 08/31/2013 11:59 PM EDT Hospital Encounter [facility] [address] [place] [address] [place] [address] [place] [address] Social History Tobacco Use Types Packs/Day [...] Date Time- 08/31/13 1157 Arturo Piper MD [facility] ORDERABL ES Final Result documented in this encounter Visit Diagnoses Not on filedocumented in this encounter
--- OUTSIDE RECORDS SUMMARY | 2024-05-25 10:44 | XMS_ITS | Encounter Summary ---
Author Organization [facility] Address [address] [place] [address] Care Team Providers Care Fish Seiner Name Role Phone Arturo Piper MD Primary Care Provider [phone] Reason for Referral * Diagnostic Imaging (Routine) - Closed Specialty Diagnoses / Procedures Referred By Alexandra melchor Referred To Contact Radiology Diagnoses Visit for screening mammogram Procedures Mammo Screening Digital Tomosynthesis Bilateral With CAD Arturo Piper MD [address] [place] [address] Phone: tel: fax: [address] [phone] Phone: tel: fax: Referral ID Status Reason Start Date Expiration Date Visits Re quested Visits Authorized [id number] Closed 01/31/2017 01/31/2018 1 1 Reason for Visit * Diagnostic Imaging (Routine) - Closed Specialty Diagnoses / Procedures Referred By Alexandra melchor Referred To Contact Radiology Diagnoses Visit for screening mammogram Procedures Mammo Screening Digital Tomosynthesis Bilateral With CAD Arturo Piper MD [address] [place] [address] Phone: tel: fax: [address] [phone] Phone: tel: fax: Referral ID Status Reason Start Date Expiration Date Visits Re quested Visits Authorized [id number] Closed 01/31/2017 01/31/2018 1 1 Encounter Details Date Type Department Care Team (Latest Contact Info) Description 04/03/2017 10:10 AM EDT - 04/03/2017 11:59 PM EDT Hospital Encounter [facility] [address] [place] [id number] Arturo Piper MD [address] [facility] [address] [place] [address] Visit for screening mammogram Discharge Disposition: Home [...] mammogram documented in this encounter Care Teams Fish Seiner Relationship Specialty Start Date End Date Arturo Piper MD [address] [place] [address] PCP - General Family Medicine 01/31/17 documented as of this encounter
[2024-05-25] MEDS: HEPARIN SODIUM,PORCINE/D5W 500 ML 22 UNIT IV (11:06)
[2024-05-25] MEDS: HEPARIN 1,000 UNITS/ML 10ML VIAL (CATH LAB) 10000 UNIT IV (12:19)
[2024-05-25] MEDS: diphenhydrAMINE 50MG/ML VIAL 50 MG IV (12:19)
[2024-05-25] MEDS: NITROGLYCERIN 800MCG/8ML SYR (CATH LAB) 800 MCG IA (12:19)
[2024-05-25] MEDS: LIDOCAINE 1% 10ML MDV 20 ML IJ (12:19)
[2024-05-25] MEDS: VERAPAMIL 2.5MG/ML 2ML VIAL 2.5 MG IV (12:20)
[2024-05-25] MEDS: 0.9 % SODIUM CHLORIDE 500 ML 25 ML IV (12:20)
[2024-05-25] MEDS: HEPARIN 1,000 UNITS/500ML NS (CATH LAB) 3000 UNIT IV (12:21)
[2024-05-25] MEDS: MIDAZOLAM HCL 1MG/ML 5ML VIAL 1 MG IV (12:37)
[2024-05-25] MEDS: FENTANYL 100MCG/2ML VIAL 50 MCG IV (12:59)
[2024-05-25] MEDS: CLOPIDOGREL 300MG TABLET 600 MG PO (13:04)
[2024-05-25] MEDS: IOPAMIDOL-370 (76%);100ML BOTTLE 120 ML IV (13:19)
[2024-05-25 13:24] LABS: CATHL Activated Clotting Time 212 SEC (74-125)
[2024-05-25 17:16] LABS: PTT Heparin (inpatient only) 69.8 Seconds (50-75)
--- NOTE | 2024-05-25 18:03 | EXP.PN ---
Subjective *Date: 05/26/24 *Time: 17:23 Interval history: Patient feels really well after receiving stents today. No chest pain, shortness of breath. Exam Data for Last 24 hours Vital signs and Labs for Last 24 Hours: Temp Pulse Resp BP Pulse Ox O2 Del Method 97.7 F 56 L 16 115/70 99 Room Air 05/25/24 13:35 05/25/24 14:20 05/25/24 14:20 05/25/24 14:20 05/25/24 14:20 05/25/24 16:24 Laboratory Results - last 24 hr 05/24/24 19:25: WBC 12.6 H, RBC 4.49, Hgb 13.6, Hct 42.1, MCV 93.7, MCH 30.2, MCHC 32.2, RDW 14.0, Plt Count 320, MPV 8.2, Neut % (Auto) 79.7, Lymph % (Auto) 13.9, [place] % (Auto) 5.5, Eos % (Auto) 0.6, Baso % (Auto) 0.4, Neut # (Auto) 10.1 H, Lymph # (Auto) 1.8, [place] # (Auto) 0.7, Eos # (Auto) 0.1, Baso # (Auto) 0.1, PT 11.1, INR 0.99, APTT 31.0 L, Sodium 135 L, Potassium 4.5, Chloride 105, Carbon Dioxide 26, Anion Gap 8.5, BUN 20 H, Creatinine 0.90, Estimated Creat Clear 55, Estimated GFR 62, Est GFR ( Amer) 75, Glucose 115 H, Calcium 8.9, Magnesium 2.1, Troponin I 36.00 H 05/24/24 21:40: Chlamy pneumoniae PCR Not detected, Adenovirus (PCR) Not detected, B. pertussis DNA (PCR) Not detected, Coronavirus OC43 (PCR) Not detected, Coronavirus HKU1 (PCR) Not detected, Coronavirus 229E (PCR) Not detected, SARS-CoV-2 (PCR) Not detected, Coronavirus NL63 (PCR) Not detected, Human Metapneumovir PCR Not detected, Influenza A (H1) PCR Not detected, Influ A (H1N1/09) PCR Not detected, Influenza A (H3) PCR Not detected, Influenza Type A (PCR) Not detected, Influenza Type B (PCR) Not detected, M. pneumoniae (PCR) Not detected, Parainfluenza 1 (PCR) Not detected, Parainfluenza 2 (PCR) Not detected, Parainfluenza 3 (PCR) Not detected, Parainfluenza 4 (PCR) Not detected, RSV (PCR) Not detected, Entero/Rhino (PCR) Not detected 05/24/24 22:22: Troponin I 40.60 H 05/25/24 01:15: Troponin I 39.80 H 05/25/24 03:10: APTT 34.3 L 05/25/24 06:03: WBC 14.2 H, RBC 4.07 L, Hgb 12.7, Hct 37.5, MCV 92.0, MCH 31.1, MCHC 33.8, RDW 14.1, Plt Count 284, MPV 8.3, Neut % (Auto) 80.4 H, Lymph % (Auto) 12.2, [place] % (Auto) 6.9, Eos % (Auto) 0.2, Baso % (Auto) 0.3, Neut # (Auto) 11.4 H, Lymph # (Auto) 1.7, [place] # (Auto) 1.0, Eos # (Auto) 0.0, Baso # (Auto) 0.0, Sodium 133 L, Potassium 4.1, Chloride 107, Carbon Dioxide 23, Anion Gap 7.1, BUN 24 H, Creatinine 0.90, Estimated Creat Clear 46, Estimated GFR 62, Est GFR ( Amer) 75, Glucose 127 H, Hemoglobin A1c 5.4, Calcium 8.3 L, Magnesium 2.1, Total Bilirubin 0.6, AST 243 H, ALT 35, Alkaline Phosphatase 98, NT-Pro-B Natriuret Pep 1960 H, Total Protein 6.2 L, Albumin 3.6, Globulin 2.6, Albumin/Globulin Ratio 1.4, Triglycerides 132, Cholesterol 248 H, LDL Cholesterol Direct 139.75 H, VLDL Cholesterol 26, HDL Cholesterol 62 H, Cholesterol/HDL Ratio 4.0 H, TSH 0.86 05/25/24 09:00: APTT 44.4 L 05/25/24 13:59: Activated Clotting Time 212 H* 05/25/24 16:46: APTT 69.8 I & O for Last 24 hours: Intake & Output 05/22/24 05/23/24 05/24/24 05/25/24 23:59 23:59 23:59 23:59 Output Total 0 / 0 Balance 0 / 0 Weight 65.969 kg 55.293 kg Constitutional Constitutional: no acute distress *Routine HEENT Exam Head: Present normocephalic Eye: Present EOMI and PERRL ENT: Present mucous membranes moist *Routine Neck Exam Neck: Present supple; Absent lymphadenopathy *Routine Respiratory Exam Respiratory: Present CTA bilaterally *Routine Cardiovascular Exam Cardiovascular: Present RRR *Routine Abdominal Exam Abdominal: Present soft and normoactive bowel sounds; Absent tenderness *Routine Extremities Exam Extremities: Absent cyanosis, clubbing or edema *Routine Skin Exam Skin: Present warm; Absent rash *Routine Neurological Exam Neurological: Present alert and oriented X3 Assessment and Plan *Assessment and plan (1) Hyperlipidemia: Status: Acute Category: Medical Code(s): E78.5 - Hyperlipidemia, unspecified (2) Myocardial infarction acute: Status: Acute Qualifiers: Myocardial infarction type: non-ST elevation myocardial infarction Qualified Code(s): I21.4 - Non-ST elevation (NSTEMI) myocardial infarction Category: Medical Code(s): I21.9 - Acute myocardial infarction, unspecified (3) STEMI (ST elevation myocardial infarction): Status: Acute Category: Medical Code(s): I21.3 - ST elevation (STEMI) myocardial infarction of unspecified site Plan Hyun Sanchez is a 69-year-old female with medical history significant for chronic tobacco use presented as a transfer from [facility] after STEMI. #STEMI #CAD #Second-degree heart block #Hyperlipidemia ? S/p PCI 05/25/2024 with KENDRA x 3 to ostial proximal mid and distal RCA. ? Patient feels much better after having received stents today. ? Aspirin 81 mg, Plavix 75 mg, atorvastatin 40 mg. ? ECHO 05/25/2024 LVEF 60%, normal biventricular function. ? Per Dr. Hoyos, patient was not 2-1 AV block after stents. Recommended monitoring for 24 hours to determine if permanent pacemaker is needed. ? Cardiology consulted, will hold off on beta-jinny and PHILOMENA/ARB given borderline low BP and heart block. ? Continuous cardiac telemetry. DNI Lovenox 40 mg
--- NOTE | 2024-05-25 20:13 | CA_ITS ---
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 Smoker, COPD, 3*heartblock, Syncopal episode Echo Enhancing Agent Comments: TDS: poor acouystics due to lung impedence. 2D Dimensions Left Atrium 2.33 cm F: 2.7 - 3.8 LA Volume 57.90 mL LA Volume Index 37.519626 mL/m2 (M/F) 16-34 EF AP4 58.30 % GL Strain -22.1 % M-Mode Dimensions RVDd 1.63 cm (0.9-2.6) LA Diam 4.38 cm (1.9-4.0) LVDd 5.03 cm (3.5-5.7) LVDs 3.72 cm (3.5-5.7) IVSd 0.97 cm (0.6-1.1) PWd 0.75 cm (0.6-1.1) EF (Teich) 50.90% EPSs 0.30 cm FS 26.00% EDV (Teich) 119.90 mL TAPSE 1.30 (<1.7) ESV (Teich) 58.90 mL LV Diastology E Decel Time 287 (160-240 msec) E/A Ratio 0.87 MED A' 6.20 cm/s LAT A' 9.90 cm/s Aortic Valve DONOVAN Index 1.42 cm2/m2 AoV Peak Ryley. 205.0 (50-130 cm/s) AO Peak GR. 16.90 mmHg AO Mean GR. 8.10 (<5 mmHg) AO VTI 39.3 (18-25 cm) DONOVAN (VTI) 2.24 (2.5-4.5 cm2) Mitral Valve MV A Velocity 118.0 (40-130 cm/s) E/A Ratio 0.87 Left Ventricle The left ventricle is normal size. The left ventricular systolic function is normal. The left ventricular ejection fraction is within the normal range. There is normal left ventricular wall thickness. There is normal LV segmental wall motion. The left ventricular diastolic function is normal. LVEF is 60%. Right Ventricle The right ventricle is normal size. The right ventricular systolic function is normal. Atria The left atrium size is normal. The right atrium size is normal. There is no Doppler evidence of interatrial shunt. Aortic Valve The aortic valve is mildly thickened. There is no hemodynamically significant aortic stenosis. Trace aortic regurgitation. Mitral Valve Mild mitral annular calcification. The mitral valve leaflets are mildly thickened. No evidence of mitral valve stenosis. Trace mitral regurgitation. Tricuspid Valve Tricuspid valve is grossly normal in structure and function. Trace tricuspid regurgitation. There is insufficient TR jet to estimate RVSP. Pulmonic Valve The pulmonary valve is normal in structure. Trace pulmonic regurgitation. Great Vessels The aortic root is normal in size. The ascending aorta is not well-visualized. IVC is normal in size and collapses >50% with inspiration. Pericardium There is no pericardial effusion. Other Information Study Quality: Fair Conclusion Normal biventricular systolic function. No significant valvular stenosis or regurgitation. Electronically signed by : Tala Rodriguez MD 05/25/2024 12:01:09
[2024-05-25] MEDS: PANTOPRAZOLE 40MG TABLET 40 MG PO (20:33)
[2024-05-25] MEDS: ATORVASTATIN 40MG TABLET 40 MG PO (20:33)
[2024-05-26] VITALS (7 sets, daily range): BP systolic 99–117; BP diastolic 41–57; PULSE 40–80; RESP 14–23; TEMP 36.4–36.8; O2SAT 94–97; BMI 26.1
[2024-05-26 06:32] LABS: Chloride 104 mmol/L (98-107); Potassium 3.7 mmoL/L (3.5-5.1); Sodium 129 mmol/L (136-145)
[2024-05-26 06:35] LABS: Anion Gap 5.7 mEq/L (5-15); Blood Urea Nitrogen 23 mg/dl (7-17); Calcium 7.9 mg/dl (8.4-10.2); Carbon Dioxide 23 mmol/L (22.0-30.0); Creatinine Clearance Estimated 55 mL/min (50-200); Estimated Glomerular Filt Rate 62 ml/min (>60); GFR (African American) 75 ML/MIN (>60); Glucose 102 mg/dl (74-100)
--- NOTE | 2024-05-26 07:42 | ECG_ITS ---
APPROVED REPORT Exam: Resting ECG HR:65 bpm ECG Measurements Heart Rate 65 AXES QRSd 82 QRS -1 QT 408 T -48 QTc 419 Conclusion ATRIAL FIBRILLATION INFERIOR MYOCARDIAL INFARCTION , PROBABLY RECENT [40+ ms Q WAVE AND/OR ST/T ABNORMALITY IN II/aVF] ACUTE GA UNCONFIRMED REPORT Electronically signed by : Javi Gates MD 05/26/2024 20:54:45
[2024-05-26 08:01] LABS: Basophils % 0.2 % (0.1-2.0); Eosinophils % 0.3 % (0.1-12.0); Hematocrit 33.2 % (37.0-47.0); Lymphocytes # 2.2 K/mm3 (0.7-4.5); Lymphocytes % 18.3 % (10-50); Mean Corpuscular HGB Conc 34.1 g/dL (31.8-35.4); Mean Corpuscular Hemoglobin 31.4 pg (27.0-31.2); Mean Corpuscular Volume 92.1 fl (81-99); Mean Platelet Volume 8.5 fl (7.4-10.4); Monocytes % 8.5 % (1.7-9.3); Neutrophils # 8.8 K/mm3 (1.8-7.8); Neutrophils % 72.6 % (37.0-80.0); Platelet Count 261 K/mm3 (142-424); White Blood Count 12.1 K/mm3 (4.8-10.8)
[2024-05-26] MEDS: 0.9 % SODIUM CHLORIDE 1000ML 500 ML IV (08:18)
[2024-05-26 09:07] LABS: Hemoglobin 11.3 g/dL (12.2-16.2)
[2024-05-26] MEDS: ASPIRIN 81MG CHEWABLE TABLET 81 MG PO (09:15)
[2024-05-26] MEDS: CLOPIDOGREL 75MG TAB 75 MG PO (09:15)
--- NOTE | 2024-05-26 13:16 | EXP.CARD.PN ---
Subjective Subjective Date: 05/26/24 Time: 12:00 Principal diagnosis: STEMI, 2:1 AV block Interval history: 69-year-old white female in bed in no acute distress. Feels better after stenting yesterday. Dr. Edgar had an extensive discussion regarding events leading up to cath, timing of cath/stenting and resulting issues with arrhythmias/possible cause for syncope and treatment options with patient today. Would like to try a dose of beta jinny to see if the arrhythmia improves or will pacemaker be needed. If arrhythmia improves then potentially home tomorrow with event monitor. Exam Data for Last 24 hours Vital signs and Labs for Last 24 Hours: Temp Pulse Resp BP Pulse Ox O2 Del Method 97.7 F 79 23 111/56 L 96 Room Air 05/26/24 08:00 05/26/24 08:00 05/26/24 08:00 05/26/24 08:00 05/26/24 08:00 05/26/24 11:43 Laboratory Results - last 24 hr 05/25/24 13:59: Activated Clotting Time 212 H* 05/25/24 16:46: APTT 69.8 05/26/24 05:58: WBC 12.1 H, RBC 3.60 L, Hgb 11.3 L D, Hct 33.2 L, MCV 92.1, MCH 31.4 H, MCHC 34.1, RDW 14.0, Plt Count 261, MPV 8.5, Neut % (Auto) 72.6, Lymph % (Auto) 18.3, [place] % (Auto) 8.5, Eos % (Auto) 0.3, Baso % (Auto) 0.2, Neut # (Auto) 8.8 H, Lymph # (Auto) 2.2, [place] # (Auto) 1.0, Eos # (Auto) 0.0, Baso # (Auto) 0.0, Sodium 129 L, Potassium 3.7, Chloride 104, Carbon Dioxide 23, Anion Gap 5.7, BUN 23 H, Creatinine 0.90, Estimated Creat Clear 55, Estimated GFR 62, Est GFR ( Amer) 75, Glucose 102 H, Calcium 7.9 L I & O for Last 24 hours: Intake & Output 05/24/24 05/25/24 05/26/24 05/27/24 11:59 11:59 11:59 11:59 Intake Total 500 / 500 Output Total 0 / 0 0 / 0 Balance 0 / 0 500 / 500 Weight 121 lb 14.403 oz 147 lb 9 oz Constitutional Constitutional: no acute distress *Routine Respiratory Exam Respiratory: Present CTA bilaterally *Routine Cardiovascular Exam Comments: Sinus rhythm with 2 1 AV block intermittently. Progress Note: A&P Assessment and plan (1) Syncope and collapse determined by examination: Status: Acute (2) Contusion of face: Status: Acute (3) Myocardial infarction acute: Status: Acute (4) Third degree heart block: Status: Acute (5) Tobacco dependency: Status: Acute Assessment and Plan Assessment and Plan for All Diagnoses:: 1. IL with syncope and intermittent 2:1 AV block -DAPT with aspirin and plavix -Trop max 40.6 -attempting to add low dose ARB and trial of beta jinny -Delayed presentation to outside hospital with Q waves noted on EKG -echo shows EF 60% with no wall motion abnormalities -KENDRA to RCA, 05/25/2024 -Intermittent AV block with 2:1 conduction noted. 2. Right orbital contusion -concern for arrhythmia as etiology -continue telemetry 3. Tobacco use -cessation recommended 4. History of hyperlipidemia -history of noncompliance with medication but will start statin -LDL 139 5. Pulmonary edema -BNP 1959 -no diuretic due to low BP and clinically able to lie flat without symptoms 6. Hyponatremia -Na 129 today (down from 135 on admission) -no masses on CXR and not receiving fluids or diuretics -TSH normal this admission check BMP this afternoon since now eating and drinking check AM cortisol to look for Monitor overnight Possibly home tomorrow if no further significant arrhythmias and no need for pacemaker.
[2024-05-26] MEDS: METOPROLOL TARTRATE 5MG/5ML VIAL 5 MG IV (13:21)
[2024-05-26 13:26] LABS: Chloride 104 mmol/L (98-107); Potassium 3.8 mmoL/L (3.5-5.1); Sodium 128 mmol/L (136-145)
[2024-05-26 13:29] LABS: Anion Gap 7.8 mEq/L (5-15); Blood Urea Nitrogen 22 mg/dl (7-17); Carbon Dioxide 20 mmol/L (22.0-30.0); Creatinine Clearance Estimated 55 mL/min (50-200); Estimated Glomerular Filt Rate 62 ml/min (>60); GFR (African American) 75 ML/MIN (>60); Glucose 115 mg/dl (74-100)
--- NOTE | 2024-05-26 13:52 | PC.NURSE ---
Pt. is aox 4, up ad christina, 90's on ra, cardiac diet, 20g R AC SL.
--- NOTE | 2024-05-26 14:32 | XR_ITS ---
FINAL REPORT CLINICAL HISTORY: leukocytosis, yellow productive cough COMPARISON: 05/24/2024 FINDINGS: SINGLE VIEW CHEST The heart is normal in size. The mediastinum is unremarkable. There are right base opacities consistent with pneumonia. There is no pneumothorax. IMPRESSION: Right base pneumonia. Reviewed, Interpreted and Dictated by Jose Wilkins III, MD Transcribed by Lucy Morrow Authenticated and [facility]
[2024-05-26] MEDS: AZITHROMYCIN 250MG TABLET 500 MG PO (16:05)
[2024-05-26] MEDS: CEFTRIAXONE 1 GM 1 GM in 0.9 % SODIUM CHLORIDE 50 ML IV (16:07)
--- NOTE | 2024-05-26 17:23 | EXP.PN ---
Subjective *Date: 05/26/24 *Time: 17:52 Interval history: Patient complains of mild shortness of breath today, CXR shows right lobar pneumonia. Denies chest pain. Exam Data for Last 24 hours Vital signs and Labs for Last 24 Hours: Temp Pulse Resp BP Pulse Ox O2 Del Method 98.3 F 45 L 17 114/41 L 94 L Room Air 05/26/24 16:00 05/26/24 16:00 05/26/24 16:00 05/26/24 16:00 05/26/24 16:00 05/26/24 16:00 Laboratory Results - last 24 hr 05/26/24 05:58: WBC 12.1 H, RBC 3.60 L, Hgb 11.3 L D, Hct 33.2 L, MCV 92.1, MCH 31.4 H, MCHC 34.1, RDW 14.0, Plt Count 261, MPV 8.5, Neut % (Auto) 72.6, Lymph % (Auto) 18.3, [place] % (Auto) 8.5, Eos % (Auto) 0.3, Baso % (Auto) 0.2, Neut # (Auto) 8.8 H, Lymph # (Auto) 2.2, [place] # (Auto) 1.0, Eos # (Auto) 0.0, Baso # (Auto) 0.0, Sodium 129 L, Potassium 3.7, Chloride 104, Carbon Dioxide 23, Anion Gap 5.7, BUN 23 H, Creatinine 0.90, Estimated Creat Clear 55, Estimated GFR 62, Est GFR ( Amer) 75, Glucose 102 H, Calcium 7.9 L 05/26/24 13:07: Sodium 128 L, Potassium 3.8, Chloride 104, Carbon Dioxide 20 L, Anion Gap 7.8, BUN 22 H, Creatinine 0.90, Estimated Creat Clear 55, Estimated GFR 62, Est GFR ( Amer) 75, Glucose 115 H, Calcium 8.0 L I & O for Last 24 hours: Intake & Output 05/23/24 05/24/24 05/25/24 05/26/24 23:59 23:59 23:59 23:59 Intake Total 790 / 790 Output Total 0 / 0 0 / 0 Balance 0 / 0 790 / 790 Weight 65.969 kg 55.293 kg 66.933 kg Constitutional Constitutional: no acute distress *Routine HEENT Exam Head: Present normocephalic Eye: Present EOMI and PERRL ENT: Present mucous membranes moist *Routine Neck Exam Neck: Present supple; Absent lymphadenopathy *Routine Respiratory Exam Respiratory: Present CTA bilaterally *Routine Cardiovascular Exam Cardiovascular: Present RRR *Routine Abdominal Exam Abdominal: Present soft and normoactive bowel sounds; Absent tenderness *Routine Extremities Exam Extremities: Absent cyanosis, clubbing or edema *Routine Skin Exam Skin: Present warm; Absent rash *Routine Neurological Exam Neurological: Present alert and oriented X3 Assessment and Plan *Assessment and plan (1) Hyperlipidemia: Status: Acute Category: Medical Code(s): E78.5 - Hyperlipidemia, unspecified (2) Myocardial infarction acute: Status: Acute Qualifiers: Myocardial infarction type: non-ST elevation myocardial infarction Qualified Code(s): I21.4 - Non-ST elevation (NSTEMI) myocardial infarction Category: Medical Code(s): I21.9 - Acute myocardial infarction, unspecified (3) STEMI (ST elevation myocardial infarction): Status: Acute Category: Medical Code(s): I21.3 - ST elevation (STEMI) myocardial infarction of unspecified site Plan Hyun Sanchez is a 69-year-old female with medical history significant for chronic tobacco use presented as a transfer from [facility] after STEMI. #STEMI #CAD #Second-degree heart block #Hyperlipidemia ? S/p PCI 05/25/2024 with KENDRA x 3 to ostial proximal mid and distal RCA. ? Patient feels much better after having received stents today. ? Aspirin 81 mg, Plavix 75 mg, atorvastatin 40 mg. ? ECHO 05/25/2024 LVEF 60%, normal biventricular function. ? Per Dr. Hoyos, patient was not 2-1 AV block after stents. Recommended monitoring for 24 hours to determine if permanent pacemaker is needed. ? Cardiology consulted, will attempt IV metoprolol 5 mg today for 2:1 AV block. If refractory, will consider pacemaker for tomorrow. Follow-up morning cortisol. ? Continuous cardiac telemetry. #Community-acquired pneumonia ? Patient has had cough for several days, and now has mild shortness of breath. CXR shows right basilar pneumonia. ? Started IV ceftriaxone, azithromycin. DNI Lovenox 40 mg
--- NOTE | 2024-05-26 19:53 | EXP.EVENT.NO ---
While doing evening rounds came in to see the patient. She reported that she is just kind of wired up after all the information , procedures and potential future procedure tomorrow. ,she has been receiving and wondering whether she is going to need an implanted pacemaker device in the morning. She has asked for something to help her sleep Plan, talked with the patient about what things would work the best and decided that we will go ahead and give her melatonin but will give her 0.5 of Ativan to help her go to sleep. She expressed her approval with this as she really would just wants to wind down and have a good night sleep after all she has been through.
--- NOTE | 2024-05-26 20:13 | PC.NURSE ---
Notified by ocean freight forwarder at 2009 that patient had 3 beats of vtach at 1859. Notified hospitalist. No new orders given
[2024-05-26] MEDS: MELATONIN 5MG TABLET 5 MG PO (20:39)
[2024-05-26] MEDS: PANTOPRAZOLE 40MG TABLET 40 MG PO (20:39)
[2024-05-26] MEDS: ATORVASTATIN 40MG TABLET 40 MG PO (20:39)
[2024-05-26] MEDS: LORazepam 0.5MG TABLET 0.5 MG PO (20:40)
[2024-05-27] VITALS: BP 108/62; PULSE 46; PULSE 50; RESP 16; TEMP 37; O2SAT 96
[2024-05-27 04:00] VITALS: BP 101/56; PULSE 66; PULSE 70; RESP 16; TEMP 36.7; O2SAT 98; BMI 26.6
[2024-05-27 06:48] LABS: Basophils % 0.4 % (0.1-2.0); Eosinophils # 0.1 K/mm3 (0.0-0.4); Eosinophils % 0.9 % (0.1-12.0); Hematocrit 29.6 % (37.0-47.0); Hemoglobin 10.2 g/dL (12.2-16.2); Lymphocytes # 2.1 K/mm3 (0.7-4.5); Lymphocytes % 25.2 % (10-50); Mean Corpuscular HGB Conc 34.4 g/dL (31.8-35.4); Mean Corpuscular Hemoglobin 31.5 pg (27.0-31.2); Mean Corpuscular Volume 91.4 fl (81-99); Mean Platelet Volume 8.8 fl (7.4-10.4); Monocytes # 0.7 K/mm3 (0.1-1.0); Monocytes % 7.9 % (1.7-9.3); Neutrophils # 5.6 K/mm3 (1.8-7.8); Neutrophils % 65.6 % (37.0-80.0); Platelet Count 237 K/mm3 (142-424); Red Blood Count 3.25 M/mm3 (4.20-5.40); Red Cell Distribution Width 14.2 % (11.5-17.5); White Blood Count 8.5 K/mm3 (4.8-10.8)
[2024-05-27 06:56] LABS: Albumin Level 3.1 g/dl (3.5-5.0); Chloride 103 mmol/L (98-107); Potassium 3.6 mmoL/L (3.5-5.1); Sodium 129 mmol/L (136-145)
[2024-05-27 06:59] LABS: Alanine Aminotransferase 26 U/L (12-78); Albumin/Globulin Ratio 1.2 (1.1-1.8); Alkaline Phosphatase 136 U/L (38-126); Anion Gap 7.6 mEq/L (5-15); Aspartate Amino Transferase 92 U/L (14-36); Bilirubin,Total 0.7 mg/dl (0.2-1.3); Blood Urea Nitrogen 18 mg/dl (7-17); Calcium 7.6 mg/dl (8.4-10.2); Carbon Dioxide 22 mmol/L (22.0-30.0); Creatinine Clearance Estimated 56 mL/min (50-200); Estimated Glomerular Filt Rate 62 ml/min (>60); GFR (African American) 75 ML/MIN (>60); Globulin 2.5 g/dL (1.3-3.2); Glucose 93 mg/dl (74-100); Total Protein,Serum 5.6 g/dl (6.3-8.2)
--- NOTE | 2024-05-27 07:56 | ECG_ITS ---
APPROVED REPORT Exam: Resting ECG HR:85 bpm ECG Measurements Heart Rate 85 AXES QRSd 100 QRS -2 QT 368 T -63 QTc 410 Conclusion SUPRAVENTRICULAR RHYTHM INFERIOR MYOCARDIAL INFARCTION , PROBABLY RECENT [40+ ms Q WAVE AND/OR ST/T ABNORMALITY IN II/aVF] ACUTE [place] UNCONFIRMED REPORT Electronically signed by : Javi Gates MD 05/27/2024 20:06:54
[2024-05-27] MEDS: AZITHROMYCIN 250MG TABLET 250 MG PO (07:58)
[2024-05-27] MEDS: CLOPIDOGREL 75MG TAB 75 MG PO (07:58)
[2024-05-27] MEDS: ASPIRIN 81MG CHEWABLE TABLET 81 MG PO (07:58)
[2024-05-27] MEDS: SODIUM CHLORIDE 1,000MG TABLET 1000 MG PO (07:58)
[2024-05-27 08:00] VITALS: BP 114/71; PULSE 60; PULSE 90; RESP 18; TEMP 36.8; O2SAT 96
[2024-05-27] MEDS: CEFTRIAXONE 1 GM 1 GM in 0.9 % SODIUM CHLORIDE 50 ML IV (08:04)
[2024-05-27] MEDS: ONDANSETRON 4MG/2ML VIAL 4 MG IV (08:12)
--- NOTE | 2024-05-27 08:34 | PC.NURSE ---
Emesis times one and zofran given.
[2024-05-27 10:22] VITALS: BMI 26.6
--- NOTE | 2024-05-27 10:44 | EXP.CARD.PN ---
Subjective Subjective Date: 05/27/24 Time: 10:44 Principal diagnosis: STEMI, 2:1 AV block Interval history: 69 yo WF in NAD in bed in NAD. Telemetry overnight showed sinus with second degree AV block type II. This AM telemetry shows possible third degree AV block with heart rate in the 60's vs sinus arrest and junctional rate in the 60's. Pt has been ambulating without issues. Dr. Hoyos talked with patient and sister to discuss concern that she may need a pacemaker but at this time her AV node is flickering on and off and may possibly recover. There is a chance she will not need a pacemaker and he would like to give her more time to recover. She can go home but he stressed she needs to take it easy and not push herself. Exam Data for Last 24 hours Vital signs and Labs for Last 24 Hours: Temp Pulse Resp BP Pulse Ox O2 Del Method 98.3 F 90 18 114/71 96 Room Air 05/27/24 08:00 05/27/24 08:00 05/27/24 08:00 05/27/24 08:00 05/27/24 08:00 05/27/24 10:03 Laboratory Results - last 24 hr 05/26/24 13:07: Sodium 128 L, Potassium 3.8, Chloride 104, Carbon Dioxide 20 L, Anion Gap 7.8, BUN 22 H, Creatinine 0.90, Estimated Creat Clear 55, Estimated GFR 62, Est GFR ( Amer) 75, Glucose 115 H, Calcium 8.0 L 05/27/24 06:04: WBC 8.5 D, RBC 3.25 L, Hgb 10.2 L, Hct 29.6 L, MCV 91.4, MCH 31.5 H, MCHC 34.4, RDW 14.2, Plt Count 237, MPV 8.8, Neut % (Auto) 65.6, Lymph % (Auto) 25.2, [place] % (Auto) 7.9, Eos % (Auto) 0.9, Baso % (Auto) 0.4, Neut # (Auto) 5.6, Lymph # (Auto) 2.1, [place] # (Auto) 0.7, Eos # (Auto) 0.1, Baso # (Auto) 0.0, Sodium 129 L, Potassium 3.6, Chloride 103, Carbon Dioxide 22, Anion Gap 7.6, BUN 18 H, Creatinine 0.90, Estimated Creat Clear 56, Estimated GFR 62, Est GFR ( Amer) 75, Glucose 93, Calcium 7.6 L, Total Bilirubin 0.7, AST 92 H D, ALT 26 D, Alkaline Phosphatase 136 H, Total Protein 5.6 L, Albumin 3.1 L, Globulin 2.5, Albumin/Globulin Ratio 1.2 I & O for Last 24 hours: Intake & Output 05/24/24 05/25/24 05/26/24 05/27/24 11:59 11:59 11:59 11:59 Intake Total 500 / 500 700 / 700 Output Total 0 / 0 0 / 0 0 / 0 Balance 0 / 0 500 / 500 700 / 700 Weight 121 lb 14.403 oz 147 lb 9 oz 150 lb 3.2 oz *Routine Respiratory Exam Respiratory: Present CTA bilaterally *Routine Cardiovascular Exam Cardiovascular: Present RRR Progress Note: A&P Assessment and plan (1) Myocardial infarction acute: Status: Acute (2) STEMI (ST elevation myocardial infarction): Status: Acute (3) Hyperlipidemia: Status: Acute (4) Third degree heart block: Status: Acute (5) Tobacco dependency: Status: Acute (6) Syncope and collapse determined by examination: Status: Acute (7) Contusion of face: Status: Acute Assessment and Plan Assessment and Plan for All Diagnoses:: 1. [place] with syncope and intermittent 2:1 AV block and now third degree AV block -Delayed presentation to outside hospital with Q waves noted on EKG -attempting to add low dose ARB and trial of beta jinny -echo shows EF 60% with no wall motion abnormalities -KENDRA to RCA, 05/25/2024, now on ASA and plavix -Intermittent second and third degree AV block but periods of AV recovery noted. 2. Right orbital contusion -telemetry showing second and third degree AV block but periods of functioning AV node. 3. Tobacco use -cessation recommended 4. History of hyperlipidemia -history of noncompliance with medication but will start statin -LDL 139 5. Pulmonary edema -BNP 1959 -no diuretic due to low BP and clinically able to lie flat without symptoms 6. Hyponatremia -Na 129 today (down from 135 on admission) -no masses on CXR and not receiving fluids or diuretics -TSH normal this admission -AM corisol pending Dr. Hoyos talked to patient and sister. Hold on pacer at this time. Stable for discharge home from cardiology standpoint. Home medication recommendations: Aspirin 81 mg daily Plavix 75 mg daily Irbesartan 37.5 mg daily Lipitor 40 mg daily Event monitor to be placed at time of discharge. Follow-up in our office in [address] Edgar or Dr. Hoyos.
--- NOTE | 2024-05-27 11:40 | EXP.DC.SUM ---
General Admission date:: 05/24/24 HPI HPI HPI: This 69-year-old female has been transferred from [facility]. Per the patient she said she did have a CAT scan of her head related to a fall. Patient is a 50+ year smoker. She was sitting on side of her bed as she remembers was coughing very hard trying to spit some junk up into a garbage can. She is not sure what happened but she woke up on the floor with bruising to the right side of her face near the eye. She does not remember the event she said she also found a little blood on her pillow from the fall but she does not remember laying her head on the pillow after the fall. She said she did have a CAT scan done at [place]. Dr. Hoyos was contacted by [facility] and we have excepted admission of the patient to the floor. The patient is stable at this time alert oriented showing no sign of weakness on either side, no signs of confusion no signs of slurring of speech. I been informed she has received aspirin and Lovenox before transfer.. She is in a changing third-degree block that could be a significant first-degree AV block at times. Heart rate remaining in the 60s. Other vital signs in normal limits. She states she has a small amount of chest pressure and a little bit of headache from her fall. She denies any respiratory symptoms. And she denies being ill before this event. Patient has been examined after caudal has been updated on the patient. Orders have been placed planning to do a cardiac cath in the morning is the agenda. If the patient was to change become unstable would notify cardiology tonight if a more immediate cardiac cath was needed.. Will place on a heparin drip half inch of Nitropaste appropriate labs have been ordered to be rechecked in the morning including an EKG , nicotine patch has been applied. Patient is a smoker but said she was coughing so we will do the respiratory panel to make sure there is no viral infection on top of this and do a chest x-ray. Breathing treatments will be held as as needed as the patient is in no distress at this time saturations 95% on room air. Past medical history, the patient states she normally does not see a doctor very often., She noted she gets most of her normal immunizations, has had normal for women's health exams in the past and also including colonoscopy. She has not spent the night in the hospital since she has not been a much younger person. And despite being more than a 50 pack-year smoker. Patient looks younger than her 69 years she appears to be in good health with good nutrition and normal body weight. Noting we have no record of her in our medical system., So all history is directly from the patient. Hospital Course Hospital Course Hospital Course: Hyun Sanchez is a 69-year-old female with medical history significant for chronic tobacco use presented as a transfer from [facility] after STEMI. #STEMI #CAD # Intermittent second/third-degree heart block #Hyperlipidemia ? Presented after STEMI at [facility]. ? S/p PCI 05/25/2024 with KENDRA x 3 to ostial proximal mid and distal RCA. ? Patient feels much better after having received stents. ? Aspirin 81 mg, Plavix 75 mg, atorvastatin 40 mg. ? ECHO 05/25/2024 LVEF 60%, normal biventricular function. ? Intermittent second and third degree AV block but periods of AV recovery noted. No plans for pacemaker at this time. ? Discharged with aspirin 81 mg, Plavix 75 mg, atorvastatin 40 mg, irbesartan 37.5 mg. ? Will also be discharged with event monitor given transient second degree heart block. ? Will follow-up with cardiology within 1 week. #Community-acquired pneumonia ? Patient has had cough for several days, and now has mild shortness of breath. CXR shows right basilar pneumonia. ? Given IV ceftriaxone, azithromycin for 2 days. ? Leukocytosis, and symptoms improved with antibiotics. ? Discharged with cefdinir, azithromycin for 3 more days. Exam Data for Last 24 hours Vital signs and Labs for Last 24 Hours: Temp Pulse Resp BP Pulse Ox O2 Del Method 98.3 F 90 18 114/71 96 Room Air 05/27/24 08:00 05/27/24 08:00 05/27/24 08:00 05/27/24 08:00 05/27/24 08:00 05/27/24 10:03 Laboratory Results - last 24 hr 05/26/24 13:07: Sodium 128 L, Potassium 3.8, Chloride 104, Carbon Dioxide 20 L, Anion Gap 7.8, BUN 22 H, Creatinine 0.90, Estimated Creat Clear 55, Estimated GFR 62, Est GFR ( Amer) 75, Glucose 115 H, Calcium 8.0 L 05/27/24 06:04: WBC 8.5 D, RBC 3.25 L, Hgb 10.2 L, Hct 29.6 L, MCV 91.4, MCH 31.5 H, MCHC 34.4, RDW 14.2, Plt Count 237, MPV 8.8, Neut % (Auto) 65.6, Lymph % (Auto) 25.2, Knox % (Auto) 7.9, Eos % (Auto) 0.9, Baso % (Auto) 0.4, Neut # (Auto) 5.6, Lymph # (Auto) 2.1, Knox # (Auto) 0.7, Eos # (Auto) 0.1, Baso # (Auto) 0.0, Sodium 129 L, Potassium 3.6, Chloride 103, Carbon Dioxide 22, Anion Gap 7.6, BUN 18 H, Creatinine 0.90, Estimated Creat Clear 56, Estimated GFR 62, Est GFR ( Amer) 75, Glucose 93, Calcium 7.6 L, Total Bilirubin 0.7, AST 92 H D, ALT 26 D, Alkaline Phosphatase 136 H, Total Protein 5.6 L, Albumin 3.1 L, Globulin 2.5, Albumin/Globulin Ratio 1.2 I & O for Last 24 hours: Intake & Output 05/24/24 05/25/24 05/26/24 05/27/24 23:59 23:59 23:59 23:59 Intake Total 1150 / 1150 50 / 50 Output Total 0 / 0 0 / 0 0 / 0 Balance 0 / 0 1150 / 1150 50 / 50 Weight 65.969 kg 55.293 kg 66.933 kg 68.13 kg Results Data Completed and Pending Labs on day of discharge: Labs from last 24 hours 05/27/24 05/26/24 06:04 13:07 WBC 8.5 D RBC 3.25 L Hgb 10.2 L Hct 29.6 L MCV 91.4 MCH 31.5 H MCHC 34.4 RDW 14.2 Plt Count 237 MPV 8.8 Neut % (Auto) 65.6 Lymph % (Auto) 25.2 Knox % (Auto) 7.9 Eos % (Auto) 0.9 Baso % (Auto) 0.4 Neut # (Auto) 5.6 Lymph # (Auto) 2.1 Knox # (Auto) 0.7 Eos # (Auto) 0.1 Baso # (Auto) 0.0 Sodium 129 L 128 L Potassium 3.6 3.8 Chloride 103 104 Carbon Dioxide 22 20 L Anion Gap 7.6 7.8 BUN 18 H 22 H Creatinine 0.90 0.90 Estimated Creat Clear 56 55 Estimated GFR 62 62 Est GFR ( Amer) 75 75 Glucose 93 115 H Calcium 7.6 L 8.0 L Total Bilirubin 0.7 AST 92 H D ALT 26 D Alkaline Phosphatase 136 H Total Protein 5.6 L Albumin 3.1 L Globulin 2.5 Albumin/Globulin Ratio 1.2 DS: Diagnosis Discharge Diagnosis (1) Myocardial infarction acute: Status: Acute Code(s): I21.9 - Acute myocardial infarction, unspecified Qualifiers: Myocardial infarction type: non-ST elevation myocardial infarction Qualified Code(s): I21.4 - Non-ST elevation (NSTEMI) myocardial infarction (2) STEMI (ST elevation myocardial infarction): Status: Acute Code(s): I21.3 - ST elevation (STEMI) myocardial infarction of unspecified site (3) Hyperlipidemia: Status: Acute Code(s): E78.5 - Hyperlipidemia, unspecified (4) Third degree heart block: Status: Acute Code(s): I44.2 - Atrioventricular block, complete (5) Tobacco dependency: Status: Acute Code(s): F17.200 - Nicotine dependence, unspecified, uncomplicated (6) Syncope and collapse determined by examination: Status: Acute Code(s): R55 - Syncope and collapse (7) Contusion of face: Status: Acute Code(s): S00.83XA - Contusion of other part of head, initial encounter Qualifiers: Encounter type: initial encounter Qualified Code(s): S00.83XA - Contusion of other part of head, initial encounter (8) Community acquired pneumonia: Status: Acute Code(s): J18.9 - Pneumonia, unspecified organism Meds Home Medications and Allergies Home Medications ?Medication ?Instructions ?Recorded ?Confirmed ?Type aspirin 81 mg chewable tablet 81 mg PO DAILY 30 days #30 tabs 05/27/24 Rx atorvastatin 40 mg tablet 40 mg PO HS 30 days #30 tabs 05/27/24 Rx azithromycin 250 mg tablet 250 mg PO DAILY 3 days #3 tabs 05/27/24 Rx cefdinir 300 mg capsule 300 mg PO BID 3 days #6 caps 05/27/24 Rx clopidogrel 75 mg tablet 75 mg PO DAILY 30 days #30 tabs 05/27/24 Rx irbesartan 75 mg tablet 37.5 mg (1/2 x 75 mg) PO DAILY 30 05/27/24 Rx days #15 tabs sodium chloride 1,000 mg soluble 1,000 mg PO BID 5 days #10 tabs 05/27/24 Rx tablet New Prescriptions to Start Prescriptions: aspirin [place],Arturo atorvastatin [place],Arturo azithromycin [place],Arturo cefdinir [place],Arturo clopidogrel [place]ay[place],Arturo irbesartan Tim,Arturo sodium chloride Tim,Arturo Allergies Allergy/AdvReac Type Severity Reaction Status Date / Time No Known Allergies Allergy Verified 05/24/24 19:25 Discharge Plan Disposition Patient Disposition: Home, Self-Care Discharge Order Discharge Orders: Discharge Order (Routine); Ordered 05/27/24 Ordered By: Arturo Dumont Follow up Plan Follow up with: Arturo Piper [Other] - 05/31/24 9:00 am Deshawn Hoyos MD [Staff Physician] - 06/01/24 8:45 am Prescriptions/Medication Reconciliation: New atorvastatin 40 mg Tablet 40 mg PO HS 30 Days Qty: 30 0RF azithromycin 250 mg Tablet 250 mg PO DAILY 3 Days Qty: 3 0RF clopidogrel 75 mg Tablet 75 mg PO DAILY 30 Days Qty: 30 0RF aspirin 81 mg Tablet,Chewable 81 mg PO DAILY 30 Days Qty: 30 0RF irbesartan 75 mg Tablet 37.5 mg PO DAILY 30 Days Qty: 15 0RF sodium chloride 1,000 mg Tablet,Soluble 1,000 mg PO BID 5 Days Qty: 10 0RF cefdinir 300 mg capsule 300 mg PO BID 3 Days Qty: 6 0RF Problem Reconciliation Problems Reviewed?: Yes Patient Discharge Instructions Patient Instructions: Heart Attack, DI for Cardiac Catheterization, DI for Surgical Site Infection, DI for Chest Pain Print Language: Sinhala Providers Primary Care Provider: Provider,Referral Admit Provider: Marcelo Roberson Attending Provider: Marcelo Roberson
[2024-05-27 11:46] VITALS: BP 90/66; PULSE 80; RESP 18; TEMP 36.7; O2SAT 93
--- NOTE | 2024-05-31 13:12 | SW/DCPLANNER ---
Called patient x2 and no answer. Left messages each time with a call back number. Carolann Manzanarse
== END 2024-05-27 13:41 | disposition home or self-care (01) | DRG 321 ==
PROVIDERS: Internal Medicine; Nurse Practitioner Family; Physician Assistant; Student in an Organized Health Care Education/Training Program; Admitting Provider Internal Medicine Adolescent Medicine; Visit Provider Internal Medicine Adolescent Medicine
PROC: 027036Z Dilation of Coronary Artery, One Artery with Three Drug-eluting Intraluminal Devices, Percutaneous Approach (ICD-10-PCS; principal; 2024-05-25 09:00)
DX: I21.4 Non-ST elevation (NSTEMI) myocardial infarction (principal); J18.9 Pneumonia, unspecified organism; I44.2 Atrioventricular block, complete; E87.1 Hypo-osmolality and hyponatremia; S00.83XA Contusion of other part of head, initial encounter; F17.200 Nicotine dependence, unspecified, uncomplicated; I25.10 Atherosclerotic heart disease of native coronary artery without angina pectoris; Z71.6 Tobacco abuse counseling; E78.5 Hyperlipidemia, unspecified; Z91.199 Patient's noncompliance with other medical treatment and regimen due to unspecified reason; W19.XXXA Unspecified fall, initial encounter
CPT/HCPCS: 36415; 71045; 80048; 80053; 80061; 82533; 83036; 83735; 83880; 84443; 84484; 85025; 85347; 85610; 85730; 87633; 92928; 93005; 93270; 93306; 93454; 99152; 99153; C1725; C1769; C1874; C9600; J0696; J1200; J1644; J2250; J2405; J3010; J7030; Q9967

== ENCOUNTER 2024-06-09 11:53 | Outpatient (CLI) | payer MEDICARE, SELFPAY ==
[2024-06-09 12:57] LABS: Red Blood Count 4.07 M/mm3 (4.20-5.40); White Blood Count 5.4 K/mm3 (4.8-10.8)
[2024-06-09 12:58] LABS: Basophils % 0.6 % (0.1-2.0); Eosinophils # 0.1 K/mm3 (0.0-0.4); Eosinophils % 2.6 % (0.1-12.0); Hematocrit 37.5 % (37.0-47.0); Lymphocytes # 1.6 K/mm3 (0.7-4.5); Lymphocytes % 29.2 % (10-50); Mean Corpuscular Hemoglobin 29.5 pg (27.0-31.2); Mean Corpuscular Volume 92.1 fl (81-99); Mean Platelet Volume 8.9 fl (7.4-10.4); Monocytes # 0.4 K/mm3 (0.1-1.0); Monocytes % 7.9 % (1.7-9.3); Neutrophils # 3.2 K/mm3 (1.8-7.8); Neutrophils % 59.1 % (37.0-80.0); Platelet Count 545 K/mm3 (142-424); Red Cell Distribution Width 13.1 % (11.5-17.5)
[2024-06-09 13:17] LABS: Albumin Level 4.2 g/dl (3.5-5.0)
[2024-06-09 13:18] LABS: Chloride 104 mmol/L (98-107); Potassium 4.7 mmoL/L (3.5-5.1); Sodium 132 mmol/L (136-145)
[2024-06-09 13:20] LABS: Alanine Aminotransferase 9 U/L (12-78); Anion Gap 6.7 mEq/L (5-15); Aspartate Amino Transferase 23 U/L (14-36); Bilirubin,Unconjugated 0.1 mg/dL (0.0-1.1); Blood Urea Nitrogen 12 mg/dl (7-17); Carbon Dioxide 26 mmol/L (22.0-30.0); Estimated Glomerular Filt Rate 71 ml/min (>60); GFR (African American) 86 ML/MIN (>60); Total Protein,Serum 6.7 g/dl (6.3-8.2)
[2024-06-09 13:21] LABS: Alkaline Phosphatase 128 U/L (38-126); Bilirubin,Direct 0.3 mg/dl (0.0-0.4); Bilirubin,Indirect 0.2 mg/dL (0.0-0.9); Bilirubin,Total 0.5 mg/dl (0.2-1.3); Chol/HDL Ratio 3.1 (1-3.5); Cholesterol 184 mg/dl (140-200); Glucose 98 mg/dl (74-100); HDL Cholesterol 60 mg/dl (40-60); Magnesium 2.2 mg/dl (1.6-2.3); Triglycerides 100 mg/dl (30-150); VLDL Cholesterol 20 mg/dL (0-40)
[2024-06-09 13:32] LABS: Direct LDL Cholesterol 92.28 mg/dL (100-129)
[2024-06-09 13:36] LABS: Free T4 (Free Thyroxine) 1.29 ng/dl (0.78-2.19)
[2024-06-09 13:52] LABS: Thyroid Stimulating Hormone 2.02 uIU/mL (0.465-4.68)
== END 2024-06-09 23:59 | disposition home or self-care (01) ==
LOC: LAB 11:57
PROVIDERS: Visit Provider Internal Medicine
DX: I10 Essential (primary) hypertension (principal); I48.0 Paroxysmal atrial fibrillation; E87.1 Hypo-osmolality and hyponatremia; Z95.5 Presence of coronary angioplasty implant and graft; I25.10 Atherosclerotic heart disease of native coronary artery without angina pectoris; E78.5 Hyperlipidemia, unspecified
CPT/HCPCS: 36415; 80048; 80061; 80076; 83735; 84439; 84443; 85025